=== PATIENT | female | born 1975 | race Caucasian/White ===

== ENCOUNTER 2023-10-29 16:40 | Outpatient (CLI) | payer BC, SELFPAY ==
--- NOTE | 2023-10-29 17:00 | US_ITS ---
Patient: ART HERRING Facility:?[facility] Patient ID:?[id number] Site Patient ID:?[id number]. Site :?[id number] Study:?US-Pelvis PELVIS TA & TV-10/29/2023 5:19:40 PM Ordering Physician:?VASILIY MOSLEY M.D. Final Report: INDICATION: Pelvic pain, abnormal uterine bleeding after ablation. TECHNIQUE: Transabdominal and transvaginal pelvic ultrasound. FINDINGS: Uterus is anteverted measures 9.2 x 5.8 x 6.0 cm. Endometrial stripe thickness is 6 mm. There is a 1.8 cm hypoechoic area in the right fundus. Is unclear if this is within the myometrium representing a leiomyoma or within the endometrium which could be complex fluid or a mass. Both ovaries appear normal. No adnexal mass or free fluid. IMPRESSION: 1.8 cm hypoechoic area in the right uterine fundus, leiomyoma versus endometrial fluid/lesion. Follow-up recommended in 6-8 weeks. Dictated by Shaun Arellano MD @ 10/30/2023 11:08:08 AM Signed by:?Shaun Arellano MD @10/30/2023 11:08:08 AM (Electronic Signature)
== END 2023-10-29 16:41 | disposition home or self-care (01) ==
LOC: US 16:40
PROVIDERS: Visit Provider Obstetrics & Gynecology
DX: N93.9 Abnormal uterine and vaginal bleeding, unspecified (principal); R93.89 Abnormal findings on diagnostic imaging of other specified body structures; R10.2 Pelvic and perineal pain
CPT/HCPCS: 76830; 76856; 93976

== ENCOUNTER 2023-12-04 07:51 | Day surgery (SDC) | payer BC, SELFPAY ==
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
--- OUTSIDE RECORDS SUMMARY | 2023-12-04 07:53 | XMS_ITS | Clinical Summary ---
Author Name Unknown Organization [facility] Address [address] [place] [address] Care Team Providers Care Preschool Assistant Director Name Role Phone Steve Choudhury M.D. Primary Care Provider [phone] Source Comments Patient records contain information from all sites at [facility]. For routine questions regarding patient records, call [phone] during business hours, M-F 8:00 AM - 5:00 PM Central Time. Record requests for emergency care only can be directed to [phone] at any time.[facility] Allergies Active Allergy Reactions Criticality Noted Date [...] 40-44 posted on 01/10 at 16:52 CDT. Encounters Date Type Department Care Team Description 10/30/2023 Orders Only [facility] MNT Steve Choudhury M.D. Monitoring For Therapeutic Drug Therapy from Last 3 Months Immunizations Name Administration Dates Next Due DTaP (Infanrix, Tripedia) 11/19/2006 H1N1 Inj 08/16/2009 Influenza (IM) Preservative Free 06/11/2008 Influenza Laiv (Nasal) (Discontinued) 05/04/2009 Influenza Split 05/30/2006, 5,05/31/2004,1999 Influenza, Injectable, Quadrivalent 05/30/2018,1 ,04/08/2015 Influenza, Seasonal, Injectable 06/10/2007 Influenza, Unspecified 05/03/2016,2014,06/10/2014,2012,05/08/2012,05/11/2010 Tdap 06/27/2017,11/19/2006 influenza vaccine quad (FLUZONE/FLUARIX) (6 months and older)(PF) 07/27/2021,07/07/2020,05/27/2019,2017,06/27/2017,05/03/2016 Family History Medical History Relation Name Comments Coronary artery disease Father David Bypa ss surgery in early 40's Heart disease Father David of compli cations of heart surgery Hyperlipidemia Father David Hypertension Father David Obesity Father David Diabetes Maternal Grandfather Al Colon cancer Maternal Grandmother Genet Other cancer Maternal Grandmother Genet Anxiety disorder Mother Michelle Arthritis Mother Michelle Depression Mother Michelle Diabetes Mother Michelle Endometrial cancer Mother Michelle Kidney disease Mother Michelle Kidney transplant Mother Michelle Melanoma Mother Michelle Obesity Mother Michelle Osteoporosis Mother Michelle Other cancer Mother Michelle Uterine Cancer Skin cancer Mother Michelle Sleep apnea Mother Michelle Diabetes Sister 1 Hypertension Sister 1 Obesity Sister 1 Hypertension Sister 2 Anxiety disorder Sister 3 Marisol Depression Sister 3 Marisol Hypertension Sister 3 Marisol Obesity Sister 3 Marisol Anxiety disorder Sister 4 Eloisa Depression Sister 4 Eloisa Diabetes Sister 4 Eloisa Hyperlipidemia Sister 4 Eloisa Hypertension Sister 4 Eloisa Obesity Sister 4 Eloisa Relation Name Status Comments Father David Maternal Grandfather Al Maternal Grandmother Genet Mother Michelle Sister 1 Alive Sister 2 Alive Sister 3 Marisol Sister 4 Eloisa Social History Tobacco Use Types Packs/Day Years [...] week 03/29/2021 How often do you attend chur ch or rastafari services? More than 4 times per year 03/29/2021 Do you belong to any clubs o r organizations such as sabianism groups, unions, fraternal or athletic groups, or [...] Answer Date Recorded PHQ-2 Score 3 01/25/2022 [facility]ational [facility] Questionnaire Answer Date Recorded [...] place to sleep or slept in a halfway (including now)? No 03/29/2021 Depression Answer Date [...] CDT Gender Identity Female 06/29/2017 9:52 PM TIRE TECHNICIAN Sexual Orientation Straight 06/29/2017 9: 52 PM TIRE TECHNICIAN Last Filed Vital Signs Vital Sign Reading Time Taken Comments Blood Pressure 145/88 03/29/2021 11:48 AM CDT Pulse 71 03/29/2021 11:48 AM CDT Temperature 36.8 ??C (98.2 ??F) 03/29/2021 11:47 AM C DT Respiratory Rate 18 06/07/2020 1:43 PM TIRE TECHNICIAN Oxygen Saturation 93% 09/12/2019 3:22 PM TIRE TECHNICIAN Inhaled Oxygen Concentration - - Weight 109 kg (239 lb 6.7 oz) 03/29/2021 11:47 A M CDT Height 170.2 cm (5' 7) 03/29/2021 11:47 AM CDT Body Mass Index 37.5 03/29/2021 11:47 AM CDT Plan of Treatment Health Maintenance Due Date Last Done Comments CT Colonography 1975 Cologuard 1975 FIT 1975 Office Visit for Blood Pressure Check / Re-check 1974 Hepatitis B Vaccines (1 of 3 - 19+ 3-dose series) 1993 Cervical Cancer Screening 08/30/20212018, 03/18/2015, 05/08/2012 Visit: Chronic Disease, age 18+ 03/29/2022 03/29/2021 Depression Monitoring (PHQ-9) 05/27/2022 01/25/2022 COVID-19 Vaccine ( season) 2023 05/15/2021, 04/29/2021, 04/15/2021 Creatinine Level (Kidney Function Test) 01/18/2024 01/17/2023, 01/17/2023, 11/23/2022, Additional history exists Potassium Level 01/18/2024 01/17/2023, 10/29, 03/31/2021, Additional history exists Sodium Level 01/18/2024 01/17/2023, 10/29, 05/12/2022, Additional history exists Mammogram 09/03/2024 09/03/2023, 07/30, 05/17/2022, Additional history exists Fasting Glucose for Diabetes Screening 01/17/2026 01/17/2023, 11/23/2022, 05/12/2022, Additional history exists DTaP,Tdap,and Td Vaccines (4 - Td or Tdap) 06/27/2027 06/27/2017, 11/19/2006, 11/19/2006 Lipid (Cholesterol) Screening 01/18/2028 01/17/2023, 03/31/2021, 09/12/2019, Additional history exists Colonoscopy 11/20/2032 11/20/2022 Colorectal Cancer Screening 11/20/2032 Hepatitis C Screening Completed 03/31/2021 Influenza Vaccine Completed 05/10/2023, , 07/27/2021, Additional history exists Pneumococcal vaccine (0-64 years) Aged Out No longer eligible based on patient's age to complete this topic Procedures Procedure Name Priority Date/Time Associated Diagnosis Comments EXTI LIPID PANEL, S Routine 01/17/2023 7 :51 AM CDT EXTI BASIC METABOLIC PANEL, S/P Routine 01/17/2023 7:51 AM CDT BI BREAST SCREENING BILATERAL WITH TOMOSYNTHESIS Routine 08/15/2022 7:13 AM TIRE TECHNICIAN HCV AB SCRN W/REFLEX TO HCV PCR, S Routine 03/31/2021 7:13 AM CDT Connective Tissue Disease (HCC) THINPREP SCREEN HPV REFLEX Routine 08/30/2018 4:03 PM TIRE TECHNICIAN General Medical Examination Adult from Last 3 Months or Most Recently Relevant to Health Maintenance Results * HCV Ab Scrn w/Reflex to HCV PCR, Serum (03/31/2021 7:13 AM CDT) HCV Ab Screen, S Negative Negative 04/01/2021 8:42 AM CDT [facility] Comment:[id number] rat io is <1.00. Blood (Blood, Venous) 03/31/2021 7:13 AM CDT 04/01/2021 8:42 AM CDT Steve Choudhury M.D. LAB MICROBIOLOGY - BLOOD ORDERABLES [facility] [address] [place] [address] [facility] Dept. of Laboratory Medicine and Pathology [address] [place] [address] * ThinPrep Screen HPV Reflex (08/30/2018 4:03 PM TIRE TECHNICIAN) 09/03/2018 3:18 PM TIRE TECHNICIAN [facility] Report electronically signed by DAWSON Simms(ASCP) I verify that I have examined all relevant slides/materials for the specimen(s) and rendered or confirmed the diagnosis. 09/03/2018 3:18 PM TIRE TECHNICIAN [facility] Gross Description Received specimen in a ThinPrep vial. 09/03/2018 3:18 PM TIRE TECHNICIAN [facility] Pap Test Source Cervical/Endocervi viktoira 09/03/2018 3:18 PM TIRE TECHNICIAN [facility] Clinical History unk 09/03/19 3:18 PM TIRE TECHNICIAN [facility] Menstrual Status(LMP, PM, ) unk 09/03/2018 3:18 PM TIRE TECHNICIAN [facility] Hormone Therapy/Contracep tives unk 09/03/2018 3:18 PM TIRE TECHNICIAN [facility] Interpretation Cervical/Endocervi viktoria ??(ThinPrep): Satisfactory for Evaluation Negative for Intraepithelial Lesion or Malignancy 09/03/2018 3:18 PM TIRE TECHNICIAN [facility] Varies (Cervix/Endocerv ix) 08/30/2018 4:03 PM TIRE TECHNICIAN 09/02/2018 2:26 PM TIRE TECHNICIAN Steve Choudhury M.D. LAB PAP PATHDX MARCO SUAZO [facility] Organization Address City/State/ZIP Co de Phone Number [facility] [address] [place] [address], [facility] from Last 3 Months or Most Recently Relevant to Health Maintenance Care Teams Preschool Assistant Director Relationship Specialty Start Date End Date Steve Choudhury M.D. [address] [phone] PCP - General 01/11/17
--- OUTSIDE RECORDS SUMMARY | 2023-12-04 07:53 | XMS_ITS ---
Author Name Unknown Organization [facility] Address [address] [place] [address] Care Team Providers Care Port Crane Operator Name Role Phone Unavailable Unavailable Unavailable Surgery Details Not on file Complications Check Surgery Details section. Procedure Estimated Blood Loss Check Surgery Details section. Procedure Findings Check Surgery Details section. Procedure Specimens Taken Check Surgery Details section.
--- OUTSIDE RECORDS SUMMARY | 2023-12-04 07:54 | XMS_ITS | Clinical Summary ---
Author Name Unknown Organization [employer] [facility] [facility] Address [place], [place] [address] Care Team Providers Care Contractor [employer] Threshing Name Role Phone Jessica Stanton DO Primary Care Provider Allergies Active Allergy Reactions Criticality Noted Date Comments Cat Dander Itching Medium 03/11/2019 Medications Medication Sig Dispensed Refills Start Date End Date Status magnesium citrate 100 mg tab 300 mL. 4 Active White Petrolatum-Minera l Oil (Refresh P.M.) 57.3-42.5 % ophthalmic ointment 1 nick, Eye(Left), Bedtime 1 Active cholecalciferol, Vitamin D3, (Vitamin D-3) 5,000 unit tab tablet 0 Active latanoprost (XALATAN) 0.005 % ophthalmic solution Place 1 Drop into the eye(s). 1 Active carboxymethylcell ulose 0.5% 0.5 % drop ophthalmic drops 0 2 Active b complex vitamins (VITAMIN B COMPLEX) capsule Take 2 Capsules by mouth once daily. 0 3 Active LORazepam (ATIVAN) 0.5 mg tabIndications:An xiety Take 1 Tablet (0.5 mg) by mouth every 6 hours if needed for Anxiety or Sleep. 30 Tablet 3 Active CPAPIndications:O bstructive sleep apnea syndrome,Fatigue, unspecified type replacement CPAP machine for home use at pressure: 5-16 cmw , Heated humidifier x 1 q 5 yr, Humidifier chamber x 1 q 6 mo, nasal mask x1 q 3mos, with pillows x 2 q mo, Heated tubing x 1 q 3 mo, Headgear x 1 q 6 mo, Filters: Disposable x 2 q mo non-disposable filters x1 q 6mo, Length of Need: 99 months, Frequency of use: Daily 1 Each 3 3 Active DULoxetine (CYMBALTA) 60 mg Delayed-release capsuleIndication s:Myofascial pain,Moderate episode of recurrent major depressive disorder (HC) TAKE 2 CAPSULES BY MOUTH ONCE DAILY 180 Capsule 1 3 Active lisinopril-hydroc hlorothiazide, 20-25 mg, (PRINZIDE, ZESTORETIC) 20-25 mg per tabletIndications :Primary hypertension TAKE 1 TABLET BY MOUTH EVERY DAY 90 Tablet 2 4 Active lisinopril-hydroc hlorothiazide, 20-25 mg, (PRINZIDE, ZESTORETIC) 20-25 mg per tabletIndications :Primary hypertension Take 1 Tablet by mouth once daily. 90 Tablet 3 3 11/11/19 24 Discontinued Active Problems Problem Noted Date Diagnosed Date FH: premature coronary heart disease 11/23/2022 Pap smear for cervical cancer screening 06/19/20 22 Overview: 04/2022 NIL/ HPV negative Plan: Pap/ HPV due 04/2027 Disorder of connective tissue 05/17/2022 Female infertility 05/03/2022 Obesity with body mass index 30 or greater 08/30 Primary hypertension 06/27/2017 Obstructive sleep apnea syndrome 06/27/2017 Myofascial pain 04/26/2016 Arthralgia of temporomandibular joint 04/26/2016 Moderate episode of recurrent major depressive d isorder 11/19/2009 Overview: Depression* Encounter for screening colonoscopy Encounters Date Type Department Care Team Description 11/30/2023 8:00 AM CDT Preop Visit [facility] [address] [place] [address] Abdullahi Valle MD Preoperative Exam (DOS: 12/04/2023, hysteroscopy, Dr. Roth, [facility]) 11/30/2023 Travel 11/10/2023 Refill [facility] [address] [place] [address] Jessica Stanton, Refill Request (Lisinopril-hydrochl orothiazide (20-25 Mg)) 10/17/2023 Lab Requisition [facility] [phone] Justina Dixon MD 09/06/2023 3:00 PM [employer] SUPERVISOR Office Visit [address] [place] [address] Jessica Stanton, DO Physical 09/06/2023 Travel from Last 3 Months Immunizations Name Administration Dates Next Due DTaP 11/19/2006 Influenza A (H1N1), Inactivated 08/16/2009 Influenza A (H1N1), Inactiva ingrid (Age >=3 Years) 08/16/2009 Influenza Virus, Unspecified 05/30/2018, 05/15/2016,05/03/2016,2014,04/08/2015,06/10/2014,06/04/2013,1 ,05/11/2010,05/30/2006, 005,05/31/2004,07/26/2000 Influenza, IIV3 (Age 6-35 mos) 06/11/2008 Influenza, IIV3 (Age >=3 years) 05/08/20 12,06/10/2007,05/30/2006,2004,05/31/2004,07/26/2000 Influenza, IIV4 05/03/2022,,07/07/2020,2018,06/18/2018,06/27/2017,05/03/2016 Influenza, IIV4 (=>6mos) MDV 05/12/2015 Influenza, Injectable, Mdck, Quadrivalent, W/preservative 05/10/2023 Influenza, Live, Intranasal Laiv3 05/04/2009 Tdap 06/27/2017,11/19/2006 Family History Medical History Relation Name Comments Good Health Daughter 1 Good Health Daughter 2 Anesthesia Problem No Family History Relation Name Status Comments Daughter 1 Daughter 2 Social History Tobacco Use Types Packs/Day Years Used Date Smoking Tobacco: Never Passive Smoke Exposure: Past Smokeless Tobacco: Never Tobacco Cessation:Counseling Given: No Passive Exposure Comments:parents smoked in child hess life and she lived above a bar as a child Alcohol Use Standard Drinks/Week Comments Yes 0 (1 standard drink = 0.6 oz pur e alcohol) minimal PHQ-2 Answer Date Recorded PHQ-2 TOTAL SCORE 2 11/23/2022 Social Connections Answer Date Recorded Frequency of Communication with Friends and Fami ly 0 11/30/2023 Financial Resource Strain Answer Date R ecorded Difficulty of Paying Living Expenses 3 11/30/2023 Difficulty of Paying Living Expenses Not on file 11/30/2023 Food Insecurity Answer Date Recorded Worried About Running Out of Food in the Last Ye ar 1 11/30/2023 Transportation Needs Answer Date Record ed Lack of Transportation (Medical) 1 11/30/2023 Housing Stability Answer Date Recorded Unable to Pay for Housing in the Last Year 1 11/30/2023 Sex and Gender Information Value Date Recorded Sex Assigned at Female 05/01/2022 5:46 PM CDT Gender Identity Female 05/01/2022 5:46 PM CDT Sexual Orientation Straight 05/01/2022 5: 46 PM CDT Obstetrics History Last Filed Vital Signs Vital Sign Reading Time Taken Comments Blood Pressure 120/74 11/30/2023 8:06 AM CDT Pulse 80 11/30/2023 8:06 AM CDT Temperature 36.7 ??C (98.1 ??F) 12/21/2022 9:50 AM CD T Respiratory Rate 16 09/06/2023 3:10 PM [employer]OM SUPERVISOR Oxygen Saturation 95% 11/30/2023 8:06 AM CDT Inhaled Oxygen Concentration - - Weight 121.1 kg (267 lb) 11/30/2023 8:06 AM CDT Height 166 cm (5' 5.35) 11/30/2023 8:06 AM CDT Body Mass Index 43.95 11/30/2023 8:06 AM CDT Plan of Treatment Upcoming Encounters Date Type Department Care Team (Late st Contact Info) Description 12/26/2023 11:30 AM CDT Preop Visit [facility] [address] [place] [address] Jessica Stanton, [address] [place] [address] Health Maintenance Due Date Last Done Comments HIV for age 15-65 1989 COVID-19 vaccine series (2022- season) 2023 05/15/2021, 04/15/2021 Depression screening for age 12+ 11/24/2023 11/23/2022, 08/11/2022, 05/03/2022 Influenza for age 9-49 03/30/2024 , 05/03/2022, 07/27/2021, Additional history exists Mammogram for age 45-75 09/03/2024 09/03/19, 08/15/2022, 03/29/2021 (Verified in Care Everywhere or Patient Record) BMI (ht and wt on same day) for age 18+ 11/29/2024 11/30/2023, 09/06/2023, 05/12/2022 Pap test for age 21-65 05/12/2027 , 05/12/2022, 08/30/2018 (Verified in Care Everywhere or Patient Record) Tetanus booster 06/27/2027 06/27/2017, 11/19/2006 Lipids for age 45-75 09/06/2028 09/06/2023, 01/17/2023, 03/31/2021 (Verified in Care Everywhere or Patient Record) Colonoscopy through age 75 11/20/2032 11/20/2022 Tdap Completed 06/27/2017, 11/19/2006 Hepatitis C screening for age 18-79 Addressed 03/31/2021 (Verified in Care Everywhere or Patient Record) Overridden with the intention of not completing the topic Pneumococcal series for age 6-64 Aged Out No longer eligible b ased on patient's age to complete this topic Procedures Procedure Name Priority Date/Time Associated Diagnosis Comments POTASSIUM,ISTAT Routine 11/30/2023 8:31 AM CDT Essential hypertension HEMOGLOBIN Routine 11/30/2023 8:25 AM CDT Preop examination LAB TRACKING EVENT Routine 10/17/2023 8: 55 AM CDT PATH TISSUE EXAM Routine 10/17/2023 8:55 AM CDT UA W/ SEDIMENT EXAM REFLEXED PER CRITERIA Routine 09/06/2023 4:16 PM [employer] SUPERVISOR Mixed stress and urge incontinence CBC WITH AUTO DIFFERENTIAL Routine 09/06/2023 4:09 PM [employer] SUPERVISOR Primary hypertension TSH WITH REFLEX Routine 09/06/2023 4:09 PM [employer]ING [employer]OM SUPERVISOR Itchy scalp Myalgia ANTINUCLEAR ANTIBODY BY IFA Routine 09/06/2023 4:09 PM [employer] RIPENING ROOM SUPERVISOR Myalgia CK TOTAL Routine 09/06/2023 4:09 PM [employer]ING [employer]OM SUPERVISOR Myalgia LIPID PANEL W REFLEX MEASURED LDL Routine 09/06/2023 4:09 PM [employer] SUPERVISOR Primary hypertension MAGNESIUM Routine 09/06/2023 4:09 PM [employer]OM SUPERVISOR Primary hypertension Myalgia SEDIMENTATION RATE Routine 09/06/2023 4: 09 PM [employer] ROOM SUPERVISOR Myalgia COMP METABOLIC PANEL Routine 09/06/2023 4:09 PM [employer] ROOM SUPERVISOR Primary hypertension CBC WITH AUTO DIFFERENTIAL Routine 09/06/2023 4:09 PM [employer] ROOM SUPERVISOR Primary hypertension XR MAMMO KAROL BILAT SCREEN Routine 09/03/2023 7:19 AM [employer] SUPERVISOR Encounter for screening mammogram for malignant neoplasm of breast COLONOSCOPY 11/20/2022 7:08 AM CDT HPV THIN PREP Routine 05/12/2022 8:15 AM CDT Pap smear for cervical cancer screening from Last 3 Months or Most Recently Relevant to Health Maintenance Results * POTASSIUM,ISTAT (11/30/2023 8:31 AM CDT) POTASSIUM, POCT 4.4 3.5 - 5.0 mmol/L 11/30/2023 8:34 AM CDT [facility] Blood BLOOD SPECIMEN / Unknown 11/30/2023 8:31 AM CDT 11/30/2023 8:33 AM CDT Abdullahi Valle MD CHEMISTRY Performing Organization Address [facility] Co de Phone Number [facility] [address] [place] [address], * HEMOGLOBIN (11/30/2023 8:25 AM CDT) HEMOGLOBIN 13.1 12.0 - 16.0 g/dL 11/30/2023 8:35 AM CDT [facility] MCV 90 80 - 100 fL 11/30/2023 8:35 AM CDT [facility] Blood BLOOD SPECIMEN / Unknown Venipuncture / Unknown 11/30/2023 8:25 AM CDT 11/30/2023 8:27 AM CDT Abdullahi Valle MD HEMATOLOGY Performing Organization Address City/[facility]/ZIP Co de Phone Number [address] [address], * LAB TRACKING EVENT (10/17/2023 8:55 AM CDT) Other (Other) Client Collect / Unknown 10/17/2023 8:55 AM CDT 10/17/2023 4:14 PM CDT Justina Dixon MD LAB BILL O KARMENY Performing Organization Address City/[facility]/ZIP Co de Phone Number [facility] [address] [place] [address], * PATH TISSUE EXAM (10/17/2023 8:55 AM CDT) Case Report Pathology Report ?Case: [id number] ? Authorizing Provider: ??Justina Cardoso ??Collected: ? 10/17/2023 0855 ? M, MD ? Ordering Location: ? [facility] ?Received: ?10/17/2023 1642 ? Pathologist: ? Alban Adrian MD ? Specimen: ?Endometrial ? 10/18/2023 2:45 PM CDT [facility] Final Diagnosis A) ENDOMETRIUM, BIOPSY: 1. Very scant surface endometrial tissue in this specimen 2. Fragments of benign endocervical epithelium 3. Recommend repeat endometrial tissue sampling, as clinically indicated 10/18/2023 2:45 PM CDT [facility] Clinical Information Abnormal uterine bleeding 10/18/2023 2:45 PM CDT [facility] Gross Description A) Received in formalin, labeled with the patient's name and date of , is a 2.3 x 0.8 x 0.3 cm aggregate of clotted blood and mucus. ??The specimen is entirely submitted in 1 cassette. EKW 10/17/2023 10/18/2023 2:45 PM CDT [facility] Microscopic Description The final diagnosis is based on microscopic examination of appropriate sections of all specimens. Additional levels were examined. 10/18/2023 2:45 PM CDT [facility] Additional Information Interpreted at [facility] - [address] [place] [address]. [facility] [address], [place] [address] 10/18/2023 2:45 PM CDT [facility] Other SPECIMEN FROM ENDOMETRIUM / Unknown 10/17/2023 8:55 AM CDT 10/17/2023 4:42 PM CDT Justina Dixon MD PATHOLOGY/ CYTOLOGY [facility] [address] [place] [address], * UA W/ SEDIMENT EXAM REFLEXED PER CRITERIA (09/06/2023 4:16 PM [employer] ROOM SUPERVISOR) COLOR Yellow Yellow Color 09/06/2023 5:13 PM [facility] CLARITY Clear Clear Clarity 09/06/2023 5:13 PM [facility] SPECIFIC GRAVITY,URINE 1.025 1.010, 1.015, 1.020, 1.025 09/06/2023 5:13 PM [facility] PH,URINE 6.0 6.0, 7.0, 8.0, 5.5, 6.5, 7.5, 8.5 09/06/2023 5:13 PM [facility] UROBILINOGEN, QUALITATIVE Normal Normal EU/dl 09/06/2023 5:13 PM [facility] PROTEIN, URINE Negative Negative mg/dL 09/06/2023 5:13 PM [facility] GLUCOSE, URINE Negative Negative mg/dL 09/06/2023 5:13 PM [facility] KETONES,URINE Negative Negative mg/dL 09/06/2023 5:13 PM [facility] BILIRUBIN,URI NE Negative Negative 09/06/2023 5:13 PM [facility] OCCULT BLOOD,URINE Negative Negative 09/06/2023 5:13 PM [facility] NITRITE Negative Negative 09/06/2023 5:13 PM [facility] LEUKOCYTE ESTERASE Negative Negative 09/06/2023 5:13 PM [facility] Urine URINE SPECIMEN / Unknown Non-Blood / Unknown 09/06/2023 4:16 PM [employer] SUPERVISOR 09/06/2023 4:16 PM [employer] SUPERVISOR Jessica Stanton DO URINE Performing Organization Address City/[facility]/ZIP Co de Phone Number [facility] [address] [place] [address] * SEDIMENTATION RATE (09/06/2023 4:09 PM [employer] RIP[employer] ROOM SUPERVISOR) SEDIMENTATION RATE 10 <20 mm/hr 2023 5:19 PM [facility] Blood BLOOD SPECIMEN / Unknown Venipuncture / Unknown 09/06/2023 4:09 PM [employer] SUPERVISOR 09/06/2023 4:10 PM [employer] SUPERVISOR Jessica Stanton DO HEMATOLOGY [facility] [address] [place] [address] * (ABNORMAL) ANTINUCLEAR ANTIBODY BY IFA (09/06/2023 4:09 PM [employer] RIP[employer] ROOM SUPERVISOR) ANTINUCLEAR ANTIBODY (JAZMINE) Positive( A) Negative 09/10/2023 12:05 PM [facility] JAZMINE PATTERN 1 Speckled( A) (none) 09/10/2023 12:05 PM [facility] JAZMINE TITER 1 1:640(A) (none) 09/10/2023 12:05 PM [facility] Blood BLOOD SPECIMEN / Unknown Venipuncture / Unknown 09/06/2023 4:09 PM [employer] ROOM SUPERVISOR 09/06/2023 4:10 PM [facility] - 09/10/2023 12:05 PM [employer] RO[employer] SUPERVISOR Method: JAZMINE screen performed by (IFA) on HEP-2 substrate, IgG Jessica Stanton DO CHEMISTRY [facility] [address] [place] [address], * (ABNORMAL) CBC WITH AUTO DIFFERENTIAL (09/06/2023 4:09 PM [employer]NA RIP[employer] ROOM SUPERVISOR) WHITE BLOOD COUNT 9.9 4.5 - 11.0 thou/cu mm 09/06/2023 5:12 PM [facility] RED BLOOD COUNT 4.53 4.00 - 5.20 mil/cu mm 09/06/2023 5:12 PM [facility] HEMOGLOBIN 13.1 12.0 - 16.0 g/dL 09/06/2023 5:12 PM [facility] HEMATOCRIT 40.9 33.0 - 51.0 % 09/06/2023 5:12 PM [facility] MCV 90 80 - 100 fL 09/06/2023 5:12 PM [facility] MCH 28.9 26.0 - 34.0 pg 09/06/2023 5:12 PM [facility] MCHC 32.0 32.0 - 36.0 g/dL 09/06/2023 5:12 PM [facility] RDW 14.0 11.5 - 15.5 % 09/06/2023 5:12 PM [facility] PLATELET COUNT 353 140 - 440 thou/cu mm 09/06/2023 5:12 PM [facility] MPV 9.8 6.5 - 11.0 fL 09/06/2023 5:12 PM [facility] % NEUT 57.0 % 09/06/2023 5:12 PM [facility] % LYMPH 28.9 % 09/06/2023 5:12 PM [facility] % MONO 7.4 % 09/06/2023 5:12 PM [facility] % EOS 6.0 % 09/06/2023 5:12 PM [facility] % BASO 0.7 % 09/06/2023 5:12 PM [facility] ABSOLUTE NEUTROPHILS 5.7 1.7 - 7.0 thou/cu mm 09/06/2023 5:12 PM [facility] ABSOLUTE LYMPHOCYTES 2.9 0.9 - 2.9 thou/cu mm 09/06/2023 5:12 PM [facility] ABSOLUTE MONOCYTES 0.7 <0.9 thou/cu mm 09/06/2023 5:12 PM [facility] ABSOLUTE EOSINOPHILS 0.6(H) <0.5 thou/cu mm 09/06/2023 5:12 PM [facility] ABSOLUTE BASOPHILS 0.1 <0.3 thou/cu mm 09/06/2023 5:12 PM [facility] Blood BLOOD SPECIMEN / Unknown Venipuncture / Unknown 09/06/2023 4:09 PM [employer] SUPERVISOR 09/06/2023 4:10 PM [employer] SUPERVISOR Jessica Stanton DO HEMATOLOGY [facility] [address] [place] [address] * TSH WITH REFLEX (09/06/2023 4:09 PM [employer]NA RIP[employer] ROOM SUPERVISOR) TSH 1.46 0.27 - 4.20 uIU/mL 09/06/2023 5:39 PM [employer] RO[employer] SUPERVISOR [facility] Blood BLOOD SPECIMEN / Unknown Venipuncture / Unknown 09/06/2023 4:09 PM [employer] ROOM SUPERVISOR 09/06/2023 4:10 PM [employer] RIPENING ROOM SUPERVISOR Narrative [facility] - 09/06/2023 5:39 PM [employer]NANA [employer] ROOM SUPERVISOR In Adults, TSH values between 5.00 and 10.00 uIU/ml do not necessarily indicate the presence of Hypothyroidism. Correlation with clinical findings such as presence of goiter and/or Thyroperoxidase (TPO) Antibody may be helpful. For more information please refer to YELENA 2004; 291: 228-238. Jessica Stanton DO CHEMISTRY [facility] [address] [place] [address] * (ABNORMAL) LIPID PANEL W REFLEX MEASURED LDL (09/06/2023 4:09 PM [employer] RO[employer] SUPERVISOR) CHOLESTEROL,TOTAL 202(H) 100 - 199 mg/dL 09/06/2023 5:39 PM [facility] Comment: Cholesterol, Total Reference Ranges Desirable <200 mg/dL Borderline 200-239 mg/dL High >=240 mg/dL TRIGLYCERIDES 178(H) <150 mg/dL 09/06/2023 5:39 PM [facility] HDL CHOLESTEROL 49 >40 mg/dL 5:39 PM [facility] NON-HDL CHOLESTEROL 153(H) <145 mg/dl 09/06/2023 5:39 PM [facility] CHOL/HDL RATIO 4.12 <4.50 09/06/2023 5:39 PM [facility] LDL CHOLESTEROL 117 <=130 mg/dL 09/06/2023 5:39 PM [facility] VLDL CHOLESTEROL 36(H) <=30 mg/dL 09/06/2023 5:39 PM [facility] PROVIDER ORDERED STATUS RANDOM 09/06/2023 5:39 PM [facility] Blood BLOOD SPECIMEN / Unknown Venipuncture / Unknown 09/06/2023 4:09 PM [employer] SUPERVISOR 09/06/2023 4:10 PM [employer] SUPERVISOR Jessica Stanton DO CHEMISTRY [facility] [address] [place] [address] * MAGNESIUM (09/06/2023 4:09 PM [employer]NANA RIPEN[employer] ROOM SUPERVISOR) MAGNESIUM 2.2 1.6 - 2.6 mg/dL 09/06/2023 5:58 PM [facility] Blood BLOOD SPECIMEN / Unknown Venipuncture / Unknown 09/06/2023 4:09 PM [employer] RO[employer] SUPERVISOR 09/06/2023 4:10 PM [employer] ROOM SUPERVISOR Jessica Stanton DO CHEMISTRY Performing Organization Address City/[facility]/ZIP Co de Phone Number [facility] [address] [place] [address] * CK TOTAL (09/06/2023 4:09 PM BANANA RIPENING ROOM SUPERVISOR) Pathologist [facility] CK,TOTAL 68 26 - 192 IU/L 09/06/2023 5:39 PM [facility] Blood BLOOD SPECIMEN / Unknown Venipuncture / Unknown 09/06/2023 4:09 PM [employer] ROOM SUPERVISOR 09/06/2023 4:10 PM [employer] RIP[employer] ROOM SUPERVISOR Jessica Coultern Maximino CHEMISTRY [facility] [address] [place] [address] * (ABNORMAL) COMP METABOLIC PANEL (09/06/2023 4:09 PM BANANA RIPENING ROOM SUPERVISOR) [facility] SODIUM 136 136 - 145 mmol/L 09/06/2023 5:38 PM [facility] POTASSIUM 3.7 3.5 - 5.1 mmol/L 09/06/2023 5:38 PM [facility] CHLORIDE 101 98 - 107 mmol/L 09/06/2023 5:38 PM [facility] CO2,TOTAL 23 22 - 29 mmol/L 09/06/2023 5:38 PM [facility] ANION GAP 12 5 - 18 09/06/2023 5:38 PM [facility] GLUCOSE 135(H) 70 - 99 mg/dL 09/06/2023 5:38 PM [facility] CALCIUM 9.7 8.6 - 10.0 mg/dL 09/06/2023 5:38 PM [facility] BUN 15 6 - 20 mg/dL 09/06/2023 5:38 PM [facility] CREATININE 0.68 0.50 - 0.90 mg/dL 09/06/2023 5:38 PM [facility] BUN/CREAT RATIO 22(H) 10 - 20 5:38 PM [facility] eGFR >90 >90 mL/min/1.7 3m2 09/06/2023 5:38 PM [facility] Comment:As of 2021, eG FR is calculated by the CKD-EPI creatinine equation without race adjustment. ??eGFR can be influenced by muscle mass, exercise, and diet. ??The reported eGFR is an estimation only and is only applicable if the renal function is stable. ALBUMIN 4.2 4.0 - 4.9 g/dL 09/06/2023 5:38 PM [facility] PROTEIN,TOTAL 7.1 6.0 - 8.0 g/dL 09/06/2023 5:38 PM [facility] BILIRUBIN,TOTAL 0.3 0.0 - 1.2 mg/dL 09/06/2023 5:38 PM [facility] ALK PHOSPHATASE 41 35 - 104 IU/L 09/06/2023 5:38 PM [facility] ALT (SGPT) 15 10 - 35 IU/L 09/06/2023 5:38 PM [facility] AST (SGOT) 21 10 - 35 IU/L 09/06/2023 5:38 PM [facility] Blood BLOOD SPECIMEN / Unknown Venipuncture / Unknown 09/06/2023 4:09 PM [employer] ROOM SUPERVISOR 09/06/2023 4:10 PM [employer] ROOM SUPERVISOR Jessica Stanton DO CHEMISTRY [facility] [address] [place] [address] * XR MAMMO KAROL BILAT SCREEN (09/03/2023 7:19 AM BANANA RIPENING ROOM SUPERVISOR) Anatomical Region Laterality Modality BREASTS, Breast Left, Breast Right Bilateral Mammography Impressions 09/03/2023 8:41 AM [employer]NANA RIP[employer] ROOM SUPERVISOR ??There is no radiographic evidence for malignancy. ??Recommend annual mammograms. MAMMOGRAM ASSESSMENT: ??ACR 1 Negative PATIENTS: You will also receive a letter with your examination results in an easy to read format. ??If you have questions about your results, please contact your referring provider. Narrative 09/03/2023 8:41 AM [employer]NANA RIPENING ROOM SUPERVISOR For Patients: As a result of the Century Cures Act, medical imaging exams and procedure reports are released immediately into your electronic medical record. You may view this report before your referring provider. If you have questions, please contact your health care provider. XR MAMMO KAROL BILAT SCREEN [[id number]] CLINICAL HISTORY: ??This is an asymptomatic 48 y.o. patient. INDICATION FOR EXAM: Mammogram Screening. TECHNIQUE: CC & MLO views were obtained. ??This study was evaluated with the assistance of Computer-Aided Detection. Breast Tomosynthesis was used in interpretation. COMPARISON FILM: Yes 08/15/22 ? FINDINGS: ??The breasts have scattered areas of fibroglandular density. There are no dominant masses, suspicious micro calcifications or areas of architectural distortion. Jessica Stanton DO MAMMO * COLONOSCOPY (11/20/2022 7:08 AM CDT) 11/20/2022 7:08 AM CDT Narrative Transcriptions Dahiana Naidu DO - 11/20/2022 8:07 AM CDT Patient Name: Betsy Ramirez Procedure Date: 11/20/2022 Gender: Female Date of : 1975 Admit Type: Ambulatory Procedure: Colonoscopy Proceduralist: Dahiana Naidu MD [facility] Referring MD: Jessica Stanton Indications/Pre-Op Diagnosis: Screening for colorectal malignant neoplasm, This is the patient's first colonoscopy Medications: Propofol per Anesthesia Procedure Description: The patient had risks, benefits and alternatives explained to andgave informed consent. The patient had a stable cardiopulmonary status and judged an adequate candidate for conscious sedation. The endoscope [id number] was passed through the anus andadvanced to the cecum, identified by appendiceal orifice and ileocecal valve.The colonoscopy was performed without difficulty. The patient toleratedthe procedure well. The quality of the bowel preparation was good. The ileocecal valve, appendiceal orifice, and rectum were photographed. Complications: No immediate complications. Estimated Blood Loss & Specimen: Estimated blood loss: none. Specimen collected - None Findings: The entire examined colon appeared normal on direct and retroflexion views. Impressions/Post-Op Diagnosis: - The entire examined colon is normal on direct and retroflexionviews. - No specimens collected. Recommendation: - Discharge patient to home. - Patient has a contact number available for emergencies. The signsand symptoms of potential delayed complications were discussed with the patient. Return to normal activities tomorrow. Written discharge instructions were provided to the patient. - High fiber diet. - Continue present medications. - Repeat colonoscopy in 10 years for screening purposes. Moderate Sedation: Moderate (conscious) sedation was personally administered by an anesthesia professional. The following parameters were monitored:oxygen saturation, heart rate, blood pressure, and response to care. Dahiana Naidu MD 11/20/2022 8:07:31 AM This report has been signed electronically. Note Initiated On: 11/20/2022 7:08 AM Dahiana Naidu DO PROCEDURE ORD * HPV HIGH RISK (05/12/2022 8:15 AM CDT) TYPE 16 Negative Negative 05/17/2022 3:26 PM CDT [facility] TYPE 18 Negative Negative 05/17/2022 3:26 PM CDT [facility]AL [facility] OTHER HIGH RISK TYPES Negative Negative 05/17/2022 3:26 PM CDT [facility] Other (Cervical/Vagina l) Non-Blood / Unknown 05/12/2022 8:15 AM CDT 05/12/2022 4:44 PM CDT Narrative [facility] - 05/17/2022 3:26 PM CDT HPV types 16, 18, 31, 33, 35, 39, 45, 51, 52, 56, 58, 59, 66 and 68 DNA were undetectable or below the pre-set threshold. Methodology: Misha Nan 4800 HPV Test Jessica Stanton DO MICROBIOLOGY [facility] [address] [place] [address], from Last 3 Months or Most Recently Relevant to Health Maintenance Advance Directives * Full Code (Latest Code Status on File) Date Activated Date Inactivated Comments 11/20/2022 6:43 AM 11/20/2022 11:06 AM Question Answer Comments Code Status Discussion: Discussed * Full Code Date Activated Date Inactivated Comments 03/19/2019 9:58 AM 03/19/2019 4:15 PM Question Answer Comments Code Status Discussion: Discussed Care Teams Contractor [employer] Threshing Relationship Specialty Start Date End Date Jessica Stanton DO [address] [place] [address] [place] [address] PCP - General Internal Medicine 05/03/22
--- OUTSIDE RECORDS SUMMARY | 2023-12-04 07:54 | XMS_ITS | Encounter Summary ---
Author Name Unknown Organization [facility] Address [address] [place] [address] Care Team Providers Care Set Up And Lay Out Inspector Name Role Phone Steve Choudhury M.D. Primary Care Provider [phone] Reason for Referral * Outpatient (Routine) - Authorized Specialty Diagnoses / Procedures Referred By Octavia t Referred To Contact Family Medicine Steve Choudhury M.D. [address] [address] [facility] Referral ID Status Reason Start Date Expiration Date V isits Requested Visits Authorized [id number] Authorized 10/30/2023 04/30/2025 1 1 Encounter Details Date Type Department Care Team (Late st Contact Info) Description 10/30/2023 Orders Only [facility] PCP [facility] MNT Steve Choudhury M.D. [address] [place] [address] Monitoring For Therapeutic Drug Therapy Social History Tobacco Use Types Packs/Day Years Used Date Smoking Tobacco: Never Smokeless Tobacco: Never Alcohol Use Standard Drinks/Week Comments Yes 1 [...] 03/29/2021 How often do you attend chur or restoration services? More than 4 times per year 03/29/2021 Do you belong to any clubs o r organizations such as episcopal groups, unions, fraternal or athletic groups, or [...] Answer Date Recorded PHQ-2 Score 3 01/25/2022 [facility] - Occupational [...] place to sleep or slept in a skilled nursing (including now)? No 03/29/2021 Depression Answer Date [...] Date Recorded Dental: Regular Dentist Yes 07/30/19 23 Employment Answer Date Recorded Employment status Employed and actively working without restrictions 03/29/2021 Education Answer Date Recorded What is the highest level of school you have completed or the highest degree you have received? 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 Sexual Orientation Straight 06/29/2017 9: 52 PM LAWN SERVICE WORKER documented as of this encounter Plan of Treatment Scheduled Orders Name Type Priority Associated Diagnoses Orde r Schedule Basic Metabolic Panel Lab Routine Monitoring For Therapeutic Drug Therapy Expected: 11/13/2023, Expires: 04/27/2024 Scheduled Referrals Name Type Priority Associated Diagnoses Orde r Schedule Family Medicine office visit (clinic) Outpatient Referral Routine Expected: 11/13/2023, Expires: 04/27/2024 documented as of this encounter Visit Diagnoses Diagnosis Monitoring For Therapeutic Drug Therapy documented in this encounter Additional Health Concerns Assessment Noted Time PHQ-9 Depression Total Score: 10 022 7:44 AM CDT documented as of this encounter Care Teams Set Up And Lay Out Inspector Relationship Specialty Start Date End Date Steve Choudhury M.D. [address] [place] [address] PCP - General 01/11/17 documented as of this encounter
[2023-12-04 08:22] VITALS: BP 131/76; PULSE 72; RESP 16; TEMP 37.1; O2SAT 96
[2023-12-04 08:24] VITALS: BMI 44.4
[2023-12-04] MEDS: LACTATED RINGERS 1000 ML 1,000 ML 100 ML IV (08:29)
--- NOTE | 2023-12-04 09:15 | W.PM.H&PU ---
History & Physical Update History & Physical Update H&P Reviewed and patient assessed: No changes noted
--- NOTE | 2023-12-04 09:40 | W.ANESCHARGE ---
Anesthesia Charges Start Date/Time Anesthesia Start Date: 12/04/23 Anesthesia Start Time: 09:27 Stop Date/Time Anesthesia Stop Date: 12/04/23 Anesthesia Stop Time: 10:42
[2023-12-04] MEDS: BUPIVACAINE 0.5% 30 ML INJECTION (09:45)
--- NOTE | 2023-12-04 10:21 | SUR.OPER ---
Hysteroscopy fluid deficit 450 ml
[2023-12-04] MEDS: SILVER NITRATE APPLICATOR 1 EACH STICK..EA. TOPICAL (10:25)
--- NOTE | 2023-12-04 10:33 | W.PM.GYNPROC ---
Procedure Note Date of procedure: 12/04/23 Will [facility] bill your pro fee for this procedure?: Yes Pre-op diagnosis: Abnormal uterine bleeding, pelvic pain Post-op diagnosis: Abnormal uterine bleeding, pelvic pain, intrauterine adhesions-history of endometrial ablation Procedure: Hysteroscopy, dilation and curettage Anesthesia: MAC Complications: None Surgeon: Aniceto Dixon MD Estimated blood loss (mL): 20 IV fluids (mL): 700 Urine Output (mL): 100 Pathology: specimen obtained, sent to pathology (endometrial curettings) Condition: stable Disposition: same day Findings: Findings: Normal external genitalia. Speculum exam: Cervix grossly normal, no abnormal discharge. Intrauterine cavity: Long cervical canal, bilateral cornual openings seen, large amount of intrauterine adhesions. Uterine sound 8cm. Procedure Description: Patient was taken to the OR were MAC anesthesia was administered without difficulty. She was placed in the dorsal lithotomy position with Amado type stirrups. Patient was then prepared and draped in the normal sterile fashion. Bladder drained with in-out catheter. A bivalved speculum was inserted in the posterior aspect of the vagina. 0.5% Bupivacaine was injected at 2 and 11 o'clock a total of about 5mL utilized. A single-tooth tenaculum was used to grasp the anterior lip of the cervix. The cervical os was sequentially dilated to accommodate the 5 mm TrueClear hysteroscope using Hegar dilators. This took an extra amount of time due to increased resistance to the dilator at around 4-5cm. Imaging was reviewed intraoperatively, cervical canal long and midline, uterine body more retroverted. This allowed more confident attempts at dilation. I was able to sound uterus after this and uterine sound of about 8cm. A 5 mm 30 degree TrueClear hysteroscope was introduced under direct visualization, and the uterus was distended with normal saline. Findings as above. I had to increase pressure to 100mmHg to better distend cavity. Soft tissue incisor blade from TrueClear hysteroscope system was introduced under direct visualization and endometrial curettings performed. Hysteroscope removed under direct visualization. Gentle sharp curetting also completed at this time. Tenaculum was removed from the cervix and good hemostasis was noted at puncture sites after application of silver nitrate. Patient tolerated the procedure well. Instrument and sponge counts were correct x2. The patient was awakened from MAC anesthesia and taken to the recovery room in a stable condition. The patient will go home after recovering from anesthesia and meeting all the criteria for discharge. She was given instruction regarding follow-up visit in 2 weeks at [facility] and instructions for pain medication. Fluid deficit: 450mL
[2023-12-04 10:46] VITALS: BP 182/105; PULSE 80; RESP 161; TEMP 36.6; O2SAT 92
[2023-12-04 11:00] VITALS: BP 182/103; PULSE 71; RESP 161; O2SAT 92
--- NOTE | 2023-12-04 11:22 | W.ANESCHARGE ---
Anesthesia Charges Start Date/Time Anesthesia Start Date: 12/04/23 Anesthesia Start Time: 09:27 Stop Date/Time Anesthesia Stop Date: 12/04/23 Anesthesia Stop Time: 10:42
[2023-12-04] MEDS: ACETAMINOPHEN 500 MG TABLET 1000 MG PO (11:23)
[2023-12-04 11:28] VITALS: BP 175/90; PULSE 70; RESP 161; O2SAT 93
--- NOTE | 2023-12-04 11:29 | SUR.PHASEII ---
PATIENT KNOWS TO TAKE HER BP MEDICATION SOON SHE GETS HOME
== END 2023-12-04 11:44 | disposition home or self-care (01) ==
LOC: OR 07:52
PROVIDERS: PCP Internal Medicine; Visit Provider Obstetrics & Gynecology
PROC: 0UDB8ZZ Extraction of Endometrium, Via Natural or Artificial Opening Endoscopic (ICD-10-PCS; CPT 58558; principal; 2023-12-04 09:15)
DX: N93.8 Other specified abnormal uterine and vaginal bleeding (principal); R10.2 Pelvic and perineal pain; N73.6 Female pelvic peritoneal adhesions (postinfective)
CPT/HCPCS: 58558; 00952; 36415; 81025; 85018; 88305; A9270; J0665; J1100; J1885; J2250; J2405; J2704; J3010; J7120

== ENCOUNTER 2024-01-09 09:58 | Day surgery (SDC) | payer BC, SELFPAY ==
[2024-01-08] MEDS: LACTATED RINGERS 1000 ML 1,000 ML 100 ML IV (10:23)
[2024-01-09] VITALS (20 sets, daily range): BP systolic 135–166; BP diastolic 79–99; PULSE 75–94; RESP 12–20; TEMP 35.9–37.3; O2SAT 91–97; BMI 43.4
--- OUTSIDE RECORDS SUMMARY | 2024-01-09 10:02 | XMS_ITS | Clinical Summary ---
Author Organization [facility] Address [address] [place] [address] Care Team Providers Care Biology Laboratory Assistant Name Role Phone Steve Choudhury M.D. Primary Care Provider [phone] Source Comments Patient records contain information from all sites at [facility]. For routine questions regarding patient records, call [phone] during business hours, M-F 8:00 AM - 5:00 PM Central Time. Record requests for emergency care only can be directed to [phone] at any time.[facility] Allergies Active Allergy Reactions Criticality Noted Date [...] Description 10/30/2023 Orders Only [facility] PCP [facility] MNT Steve Choudhury M.D. Monitoring For Therapeutic [...] any clubs o r organizations such as voodoo groups, unions, fraternal or athletic groups, or [...] Answer Date Recorded PHQ-2 Score 3 [facility]20[facility] Answer Date Recorded [...] place to sleep or slept in a mcc (including now)? 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 Sexual Orientation Straight 06/29/2017 9: 52 PM GENERAL MANAGER IN TRAINING Last Filed Vital Signs Vital Sign Reading Time Taken Comments Blood Pressure 145/88 03/29/2021 11:48 AM CDT Pulse 71 03/29/2021 11:48 AM CDT Temperature 36.8 ??C (98.2 ??F) 03/29/2021 11:47 AM C DT Respiratory Rate 18 06/07/2020 1:43 PM GENERAL MANAGER IN TRAINING Oxygen Saturation 93% 09/12/2019 3:22 PM GENERAL MANAGER IN TRAINING Inhaled Oxygen Concentration - - Weight 109 [...] Depression Monitoring (PHQ-9) 05/27/2022 01/25/2022 COVID-19 Vaccine (2022- season) 2023 05/15/2021, 04/29/2021, 04/15/2021 Creatinine Level [...] BILATERAL WITH TOMOSYNTHESIS Routine 08/15/2022 7:13 AM GENERAL MANAGER IN TRAINING HCV AB SCRN W/REFLEX TO HCV PCR, S Routine 03/31/2021 7:13 AM CDT Connective Tissue Disease (HCC) THINPREP SCREEN HPV REFLEX Routine 08/30/2018 4:03 PM GENERAL MANAGER IN TRAINING General Medical Examination Adult from Last 3 Months or Most Recently Relevant to Health Maintenance Results * HCV Ab Scrn w/Reflex to HCV PCR, Serum (03/31/2021 7:13 AM CDT) [facility] HCV Ab Screen, S Negative Negative 04/01/2021 8:42 AM CDT [facility] Comment:Jxgjhz-[id number]-rowvri rat io is <1.00. Blood (Blood, Venous) 03/31/2021 7:13 AM CDT 04/01/2021 8:42 AM CDT Steve Choudhury M.D. LAB MICROBIOLOGY - BLOOD ORDERABLES [facility] [address] [place] [address] [facility] Dept. of Laboratory Medicine and Pathology [address] [place] [address] * ThinPrep Screen HPV Reflex (08/30/2018 4:03 PM GENERAL MANAGER IN TRAINING) 09/03/2018 3:18 PM GENERAL MANAGER IN TRAINING [facility] Report electronically signed by DAWSON Simms(ASCP) I verify that I have examined all relevant slides/materials for the specimen(s) and rendered or confirmed the diagnosis. 09/03/2018 3:18 PM GENERAL MANAGER IN TRAINING [facility] Gross Description Received specimen in a ThinPrep vial. 09/03/2018 3:18 PM GENERAL MANAGER IN TRAINING [facility] Pap Test Source Cervical/Endocervi viktoria 09/03/2018 3:18 PM GENERAL MANAGER IN TRAINING [facility] Clinical History unk 09/03/19 3:18 PM GENERAL MANAGER IN TRAINING [facility] Menstrual Status(LMP, PM, ) unk 09/03/2018 3:18 PM GENERAL MANAGER IN TRAINING [facility] Hormone Therapy/Contracep tives unk 09/03/2018 3:18 PM GENERAL MANAGER IN TRAINING [facility] Interpretation Cervical/Endocervi viktoria ??(ThinPrep): Satisfactory for Evaluation Negative for Intraepithelial Lesion or Malignancy 09/03/2018 3:18 PM GENERAL MANAGER IN TRAINING [facility] Varies (Cervix/Endocerv ix) 08/30/2018 4:03 PM GENERAL MANAGER IN TRAINING 09/02/2018 2:26 PM GENERAL MANAGER IN TRAINING Steve Choudhury M.D. LAB PAP PATHDX MARCO SUAZO [facility] Organization Address City/State/ZIP Co de Phone Number [facility] [address] [place] [address], [facility] [place] from Last 3 Months or Most Recently Relevant to Health Maintenance Care Teams Biology Laboratory Assistant Relationship Specialty Start Date End Date Steve Choudhury M.D. [address] [address] PCP - General 01/11/17
--- OUTSIDE RECORDS SUMMARY | 2024-01-09 10:03 | XMS_ITS ---
Author Organization [facility] Address [address] [place] [address] Care Team Providers Care Sap Technical Architect Name Role Phone Unavailable Unavailable Unavailable Surgery Details Not on file Complications Check Surgery Details section. Procedure Estimated Blood Loss Check Surgery Details section. Procedure Findings Check Surgery Details section. Procedure Specimens Taken Check Surgery Details section.
--- OUTSIDE RECORDS SUMMARY | 2024-01-09 10:03 | XMS_ITS | Clinical Summary ---
Author Organization [facility] Address [place], [place] [address] Care Team Providers Care Hybrid Technologist Name Role Phone Jessica Stanton Primary Care Provider Allergies Active Allergy Reactions Criticality Noted Date Comments Cat Dander Itching Medium 03/11/2019 Medications Medication Sig Dispensed Refills Start Date End Date Status magnesium citrate 100 mg tab 300 mL. 05/15/2014 Active White Petrolatum-Mineral Oil (Refresh P.M.) 57.3-42.5 % ophthalmic ointment 1 nick, Eye(Left), Bedtime 03/23/2011 Active cholecalciferol, Vitamin D3, (Vitamin D-3) 5,000 unit tab tablet 04/29/2020 Active latanoprost (XALATAN) 0.005 % ophthalmic solution Place 1 Drop into the eye(s). 03/17/2021 Active carboxymethylcellul ose 0.5% 0.5 % drop ophthalmic drops 0 05/03/2022 Active b complex vitamins (VITAMIN B COMPLEX) capsule Take 2 Capsules by mouth once daily. 0 08/11/2022 Active LORazepam (ATIVAN) 0.5 mg tabIndications:Anxi ety Take 1 Tablet (0.5 mg) by mouth every 6 hours if needed for Anxiety or Sleep. 30 Tablet 11/23/2022 Active CPAPIndications:Obs tructive sleep apnea syndrome,Fatigue, unspecified type replacement CPAP [...] Frequency of use: Daily 1 Each 3 03/13/2023 Active DULoxetine (CYMBALTA) 60 mg Delayed-release capsuleIndications: Myofascial pain,Moderate episode of recurrent major depressive disorder (HC) TAKE 2 CAPSULES BY MOUTH ONCE DAILY 180 Capsule 1 07/20/2023 Active lisinopril-hydrochl orothiazide, 20-25 mg, (PRINZIDE, ZESTORETIC) 20-25 mg per tabletIndications:P rimary hypertension TAKE 1 TABLET BY MOUTH EVERY DAY 90 Tablet 2 11/11/2023 Active Active Problems Problem Noted Date Diagnosed Date Prediabetes 12/27/2023 FH: premature coronary heart disease 11/23/2022 Pap smear for cervical cancer screening 06/19/20 Overview: 04/2022 NIL/ HPV negative Plan: Pap/ [...] Encounters Date Type Department Care Team Description 01/09/[address] [phone] Jessica Stanton DO Refill Request (Duloxetine) 12/26/2023 11:30 AM CDT Preop Visit [address] [address] Jessica Stanton DO Pre-Op Exam ([facility] 01/09/24, Hysterectomy (total) Justina Rocha MD) 12/26/2023 Travel 12/04/2023 Orders Only [facility] Scanner 1 scan: (1-Ord) [place], HYSTEROSCOPY,DILATIO N and CURETTAGE, 12/04/2023 12/04/2023 Lab Requisition [facility] [phone] Justina Dixon MD 11/30/2023 8:00 AM CDT Preop Visit [facility] [address] [place] [address] Abdullahi Valle MD Preoperative Exam (DOS: 12/04/2023, hysteroscopy, Dr. Roth, [facility]) 11/30/2023 Travel 11/10/2023 Refill [facility] [address] [facility] [place] [address] Jessica Stanton, Refill Request (Lisinopril-hydrochl orothiazide (20-25 Mg)) 10/17/2023 Lab Requisition [facility] [phone] Justina Dixon MD from Last 3 Months Immunizations Name Administration [...] PHQ-2 Answer Date Recorded PHQ-2 TOTAL SCORE 1 12/26/2023 Social Connections Answer Date Recorded Frequency of [...] Sign Reading Time Taken Comments Blood Pressure 130/78 12/26/2023 11:48 AM CDT Pulse 65 12/26/2023 11:48 AM CDT Temperature 37 ??C (98.6 ??F) 12/26/2023 11:48 AM CDT Respiratory Rate 16 12/26/2023 11:48 AM CDT Oxygen Saturation 96% 12/26/2023 11:48 AM CDT Inhaled Oxygen Concentration - - Weight 122.2 kg (269 lb 8 oz) 12/26/2023 11:48 A M CDT Height 168.9 cm (5' 6.5) 12/26/2023 11:48 AM CD T Body Mass Index 42.85 12/26/2023 11:48 AM CDT Plan of Treatment Health Maintenance Due Date Last Done Comments HIV for age 15-65 1990 COVID-19 vaccine series (2022- season) 2023 05/15/2021, 04/15/2021 Influenza for age 9-49 03/30/2024 , 05/03/2022, 07/27/2021, Additional history exists Mammogram for age 45-75 09/03/2024 09/03/19, 08/15/2022, 03/29/2021 (Verified in Care Everywhere or Patient Record) BMI (ht and wt on same day) for age 18+ 12/25/2024 12/26/2023, 11/30/2023, 09/06/2023, Additional history exists Depression screening for age 12+ 12/25/2024 12/26/2023, 11/23/2022, 08/11/2022, Additional history exists Pap test for age 21-65 05/12/2027 , [...] Procedure Name Priority Date/Time Associated Diagnosis Comments CBC WITH AUTO DIFFERENTIAL Routine 12/26/2023 8:00 PM CDT Preoperative general physical examination Menorrhagia with regular cycle CBC WITH AUTO DIFFERENTIAL Routine 12/26/2023 8:00 PM CDT Preoperative general physical examination Menorrhagia with regular cycle COMP METABOLIC PANEL Routine 12/26/2023 8:00 PM CDT Preoperative general physical examination Menorrhagia with regular cycle HEMOGLOBIN A1C SCREENING Routine 12/26/2023 8:00 PM CDT Hyperglycemia PITCH FLAKER ANTIBODY Routine 12/26/2023 8:00 PM CDT Positive JAZMINE (antinuclear antibody) SJOGRENS ANTIBODIES Routine 12/26/2023 8 :00 PM CDT Positive JAZMINE (antinuclear antibody) ANTI-MEADOWS Routine 12/26/2023 8:00 PM CDT Positive JAZMINE (antinuclear antibody) DNA DOUBLE-STRANDED (DSDNA) ANTIBODIES BY CRIJARRETA LUCILIAE IFA Routine 12/26/2023 8:00 PM CDT Positive JAZMINE (antinuclear antibody) RA QUANTITATIVE Routine 12/26/2023 8:00 PM CDT Positive JAZMINE (antinuclear antibody) ANTISCLERODERMA 70 ANTIBODIES Routine 12/26/2023 12:47 PM CDT Positive JAZMINE (antinuclear antibody) ANTI OFELIA 1 Routine 12/26/2023 12:39 PM CDT Positive JAZMINE (antinuclear antibody) CYCLIC CITRULLINE PEPTIDE Routine 12/26/2023 12:39 PM CDT Positive JAZMINE (antinuclear antibody) LAB TRACKING EVENT Routine 12/04/2023 10 :11 AM CDT PATH TISSUE EXAM Routine 12/04/2023 10:1 1 AM CDT SCAN-ENDOSCOPY 12/04/2023 12:00 AM CDT POTASSIUM,ISTAT Routine 11/30/2023 8:31 AM CDT Essential hypertension HEMOGLOBIN Routine 11/30/2023 8:25 AM CDT Preop examination LAB TRACKING EVENT Routine 10/17/2023 8: 55 AM CDT PATH TISSUE EXAM Routine 10/17/2023 8:55 AM CDT LIPID PANEL W REFLEX MEASURED LDL Routine 09/06/2023 4:09 PM HOTEL DIRECTOR Primary hypertension XR MAMMO KAROL BILAT SCREEN Routine 09/03/2023 7:19 AM HOTEL DIRECTOR Encounter for screening mammogram for malignant neoplasm of breast COLONOSCOPY 11/20/2022 7:08 AM CDT HPV THIN PREP Routine 05/12/2022 8:15 AM CDT Pap smear for cervical cancer screening from Last 3 Months or Most Recently Relevant to Health Maintenance Results * (ABNORMAL) CBC WITH AUTO DIFFERENTIAL (12/26/2023 8:00 PM CDT) WHITE BLOOD COUNT 9.3 4.5 - 11.0 thou/cu mm 12/26/2023 8:57 PM [facility] RED BLOOD COUNT 4.44 4.00 - 5.20 mil/cu mm 12/26/2023 8:57 PM [facility] HEMOGLOBIN 13.3 12.0 - 16.0 g/dL 12/26/2023 8:57 PM [facility] HEMATOCRIT 39.4 33.0 - 51.0 % 12/26/2023 8:57 PM [facility] MCV 89 80 - 100 fL 12/26/2023 8:57 PM [facility] MCH 30.0 26.0 - 34.0 pg 12/26/2023 8:57 PM [facility] MCHC 33.8 32.0 - 36.0 g/dL 12/26/2023 8:57 PM [facility] RDW 14.1 11.5 - 15.5 % 12/26/2023 8:57 PM [facility] PLATELET COUNT 374 140 - 440 thou/cu mm 12/26/2023 8:57 PM CDT [facility] MPV 9.9 6.5 - 11.0 fL 12/26/2023 8:57 PM [facility] % NEUT 55.0 % 12/26/2023 8:57 PM [facility] % LYMPH 33.5 % 12/26/2023 8:57 PM [facility] % MONO 8.5 % 12/26/2023 8:57 PM T [facility] % EOS 2.0 % 12/26/2023 8:57 PM T [facility] % BASO 1.0 % 12/26/2023 8:57 PM [facility] ABSOLUTE NEUTROPHILS 5.1 1.7 - 7.0 thou/cu mm 12/26/2023 8:57 PM [facility] ABSOLUTE LYMPHOCYTES 3.1(H) 0.9 - 2.9 thou/cu mm 12/26/2023 8:57 PM [facility] ABSOLUTE MONOCYTES 0.8 <0.9 thou/cu mm 12/26/2023 8:57 PM [facility] ABSOLUTE EOSINOPHILS 0.2 <0.5 thou/cu mm 12/26/2023 8:57 PM [facility] ABSOLUTE BASOPHILS 0.1 <0.3 thou/cu mm 12/26/2023 8:57 PM T [facility] Blood BLOOD SPECIMEN / Unknown Butterfly / Unknown 12/26/2023 8:00 PM CDT 12/26/2023 8:05 PM CDT Jessica Stanton DO HEMATOLOGY [facility] [address] [place] [address] * HEMOGLOBIN A1C SCREENING (12/26/2023 8:00 PM CDT) HEMOGLOBIN A1C SCREENING 6.3 <=6.4 % 12/27/2023 7:17 AM T [facility] Blood BLOOD SPECIMEN / Unknown Butterfly / Unknown 12/26/2023 8:00 PM CDT 12/26/2023 8:05 PM CDT Narrative [facility] - 12/27/2023 7:17 AM CDT ? (<5.7%) ?Normal ? (5.7% to 6.4%) ? Indicates prediabetes ? (>=6.5%) ? Confirms diabetes Falsely low levels may be seen with: Recent Transfusion, Recent Significant Blood Loss, Hemolytic Diseases, or Falsely elevated levels may be seen with: Untreated Anemias, Splenectomy Jessica Stanton DO CHEMISTRY Performing Organization Address [facility] Co de Phone Number [facility] [address] [place] [address] * PITCH FLAKER ANTIBODY (12/26/2023 8:00 PM CDT) PITCH FLAKER Antibody <3.5 <=19.9 CU 12/28/2023 12:26 PM CDT [facility] Blood BLOOD SPECIMEN / Unknown Butterfly / Unknown 12/26/2023 8:00 PM CDT 12/26/2023 8:05 PM CDT Narrative [facility] - 12/28/2023 12:26 PM CDT Reference Range: ?< 20 CU Negative; ?>=20 CU Positive; ?? These results were obtained with the [employer] Quanta Flash PITCH FLAKER chemiluminescent immunoassay. Values obtained with different manufacturers' methods may not be used interchangeably. Jessica Stanton DO SEND OUTS Performing Organization Address [facility] Co de Phone Number [facility] [address] [place] [address], * ANTI-MEADOWS (12/26/2023 8:00 PM CDT) Sm Antibody 5.7 <=19.9 CU 12/28/2023 2:04 PM CDT [facility] Blood BLOOD SPECIMEN / Unknown Butterfly / Unknown 12/26/2023 8:00 PM CDT 12/26/2023 8:05 PM CDT Narrative [facility] - 12/28/2023 2:04 PM CDT Reference Range: ? < 20 CU Negative; ? >=20 CU Positive; ?? These results were obtained with the [employer] Quanta Flash Sm chemiluminescent immunoassay. Values obtained with different manufacturers' methods may not be used interchangeably. Jessica Stanton DO SEND OUTS Performing Organization Address City/[facility]/ZIP Co de Phone Number [facility] [address] [place] [address], * SJOGRENS ANTIBODIES (12/26/2023 8:00 PM CDT) Ro52 Antibody <2.3 <=19.9 CU 12/28/2023 12:26 PM CDT [facility] Ro60 Antibody <4.9 <=19.9 CU 12/28/2023 12:26 PM CDT [facility] SS-B ANTIBODY <3.3 <=19.9 CU 12/28/2023 12:26 PM CDT [facility] Blood BLOOD SPECIMEN / Unknown Butterfly / Unknown 12/26/2023 8:00 PM CDT 12/26/2023 8:05 PM CDT Narrative [facility] - 12/28/2023 12:26 PM CDT Reference Range: ? < 20 CU Negative ?? >=20 CU Positive These results were obtained with the [employer] Quanta Flash SS-B, Ro52, Ro60 chemiluminescent immunoassay. Values obtained with different manufacturers' methods may not be used interchangeably. The magnitude of the reported autoantibody levels cannot always be correlated to an endpoint titer. ? Jessica Stanton DO SEND OUTS Performing Organization Address City/[facility]/ZIP Co de Phone Number [facility] [address] [address], [place] * RA QUANTITATIVE (12/26/2023 8:00 PM CDT) Pathologist [facility] RHEUMATOID FACTOR,QUANT <10.00 <14.00 IU/mL 12/27/2023 3:40 PM CDT [facility] Blood BLOOD SPECIMEN / Unknown Butterfly / Unknown 12/26/2023 8:00 PM CDT 12/26/2023 8:05 PM CDT Jessica Stanton DO SEND OUTS Performing Organization Address [facility] Co de Phone Number [facility] [address] [place] [address], * ZEXF-HGOEIS-QXT (12/26/2023 8:00 PM CDT) [facility] ANTI-SANTA YNEZ DNA Negative Negative 12/28/2023 1:07 PM CDT [facility] Blood BLOOD SPECIMEN / Unknown Butterfly / Unknown 12/26/2023 8:00 PM CDT 12/26/2023 8:05 PM CDT Narrative [facility] - 12/28/2023 1:07 PM CDT Method: DNA Double-Stranded (dsDNA) Antibodies by Patti rasmussen IFA, IgG, Serum Jessica Stanton SEND OUTS Performing Organization Address [facility] Co de Phone Number [facility] [address] [place] [address], * (ABNORMAL) COMP METABOLIC PANEL (12/26/2023 8:00 PM CDT) Pathologist [facility] SODIUM 138 136 - 145 mmol/L 12/26/2023 9:12 PM CDT [facility] POTASSIUM 4.0 3.5 - 5.1 mmol/L 12/26/2023 9:12 PM CDT [facility] CHLORIDE 102 98 - 107 mmol/L 12/26/2023 9:12 PM CDT [facility] CO2,TOTAL 20(L) 22 - 29 mmol/L 12/26/2023 9:12 PM [facility] ANION GAP 16 5 - 18 12/26/2023 9:12 PM [facility] GLUCOSE 92 70 - 99 mg/dL 12/26/2023 9:12 PM [facility] CALCIUM 10.0 8.6 - 10.0 mg/dL 12/26/2023 9:12 PM [facility] BUN 13 6 - 20 mg/dL 12/26/2023 9:12 PM [facility] CREATININE 0.65 0.50 - 0.90 mg/dL 12/26/2023 9:12 PM [facility] BUN/CREAT RATIO 20 10 - 20 9:12 PM [facility] eGFR >90 >90 mL/min/1.7 3m2 12/26/2023 9:12 PM [facility] Comment:As of 2021, eG FR is calculated by the CKD-EPI creatinine equation without race adjustment. ??eGFR can be influenced by muscle mass, exercise, and diet. ??The reported eGFR is an estimation only and is only applicable if the renal function is stable. ALBUMIN 4.4 4.0 - 4.9 g/dL 12/26/2023 9:12 PM [facility] PROTEIN,TOTAL 7.0 6.0 - 8.0 g/dL 12/26/2023 9:12 PM [facility] BILIRUBIN,TOTAL 0.2 0.0 - 1.2 mg/dL 12/26/2023 9:12 PM [facility] ALK PHOSPHATASE 45 35 - 104 IU/L 12/26/2023 9:12 PM [facility] ALT (SGPT) 19 10 - 35 IU/L 12/26/2023 9:12 PM [facility] AST (SGOT) 18 10 - 35 IU/L 12/26/2023 9:12 PM [facility] Blood BLOOD SPECIMEN / Unknown Butterfly / Unknown 12/26/2023 8:00 PM CDT 12/26/2023 8:05 PM CDT Jessica Stanton DO CHEMISTRY [facility] [address] [place] [address] * ANTISCLERODERMA 70 ANTIBODIES (12/26/2023 12:47 PM CDT) SCL 70 Abs <0.2 0.0 - 0.9 AI 12/28/2023 9:06 PM CDT [facility] Blood BLOOD SPECIMEN / Unknown Butterfly / Unknown 12/26/2023 12:47 PM CDT 12/26/2023 12:50 PM CDT Narrative [facility]) - 12/28/2023 9:06 PM CDT Performed at: ??01 - [facility] [address] ??[id number] Benefit Director: Abram Caruso MD, Phone: ??[phone] Jessica Stanton DO SEND OUTS Performing Organization Address City/[facility]/ZIP Co de Phone Number [facility] ([facility]) [address] [place] [address] * ANTI OFELIA 1 (12/26/2023 12:39 PM CDT) Anti Ofelia 1 <0.2 0.0 - 0.9 AI 12/28/2023 9:06 PM CDT [facility]) Blood BLOOD SPECIMEN / Unknown Venipuncture / Unknown 12/26/2023 12:39 PM CDT 12/26/2023 12:39 PM CDT Narrative [facility] ([facility]) - 12/28/2023 9:06 PM CDT Performed at: ??01 - [facility] [address] [place] [address] ??[id number] Benefit Director: Abram Caruso MD, Phone: ??[phone] Jessica Stanton DO SEND OUTS Performing Organization Address [facility] Co de Phone Number [facility] ([facility]) [address] [place], [place] [id number], * CYCLIC CITRULLINE PEPTIDE (12/26/2023 12:39 PM CDT) CCP Antibody,IgG/I gA <4.6 <=19.9 CU 12/27/2023 1:12 PM CDT [facility] Blood BLOOD SPECIMEN / Unknown Venipuncture / Unknown 12/26/2023 12:39 PM CDT 12/26/2023 12:39 PM CDT Narrative [facility] - 12/27/2023 1:12 PM CDT Negative <20 Positive >=20 The following results were obtained with the [employer] Flash CCP3 chemiluminescent immunoassay. Values obtained with different manufacturers' assay methods may not be used interchangeably. Jessica Stanton DO SEND OUTS Performing Organization Address [facility] Co de Phone Number [facility] [address] [place] [address], * LAB TRACKING EVENT (12/04/2023 10:11 AM CDT) Only the most recent of2 resultswithin the time period is included. Other (Other) Client Collect / Unknown 12/04/2023 10:11 AM CDT 12/04/2023 9:50 PM CDT Justina Dixon MD LAB BILL O NLY Performing Organization Address [facility] Co de Phone Number [facility] [address] [place] [address], * PATH TISSUE EXAM (12/04/2023 10:11 AM CDT) Only the most recent of2 resultswithin the time period is included. Case Report Pathology Report ?Case: [id number] ? Authorizing Provider: ??Justina Cardoso ??Collected: ? 12/04/2023 1011 ? M, MD ? Ordering Location: ? [facility] ?Received: ?12/05/2023 0810 ? Pathologist: ? Maryjo Armenta MD ? Specimen: ?Endometrial Curettings ? 12/07/2023 9:36 AM CDT [facility] Final Diagnosis A) ENDOMETRIUM, CURETTAGE: 1. Fragments of secretory endometrium 2. Negative for chronic endometritis 3. Negative for hyperplasia, atypia, and malignancy 12/07/2023 9:36 AM CDT [facility] Clinical Information Post ablation with pain 12/07/2023 9:36 AM CDT [facility] Gross Description A) Received in formalin, labeled with the patient's name and endometrial curettings, is a 2.5 x 1 x 0.3 cm aggregate of pink-funes mucosa admixed with clotted blood and mucous. The specimen is entirely submitted in 1 cassette. RAL 12/05/2023 12/07/2023 9:36 AM CDT [facility] Microscopic Description The final diagnosis is based on microscopic examination of appropriate sections of all specimens. 12/07/2023 9:36 AM CDT [facility] Additional Information Interpreted at [facility] - [address] [place] [address] [address], [place] [address] 12/07/2023 9:36 AM CDT [facility] Other (Endometrial Curettings) 12/04/2023 10:11 AM CDT 12/05/2023 8:10 AM CDT Justina Dixon MD PATHOLOGY/ CYTOLOGY [facility] [address] [place] [address], * SCAN-ENDOSCOPY (12/04/2023 12:00 AM CDT) Scanner OTHER * POTASSIUM,ISTAT (11/30/2023 8:31 AM CDT) POTASSIUM, POCT 4.4 3.5 - 5.0 mmol/L 11/30/2023 8:34 AM CDT [facility] Blood BLOOD SPECIMEN / Unknown 11/30/2023 8:31 AM CDT 11/30/2023 8:33 AM CDT Abdullahi Valle MD CHEMISTRY [facility] [address] [place] [address], * HEMOGLOBIN (11/30/2023 8:25 AM CDT) HEMOGLOBIN 13.1 12.0 - 16.0 g/dL 11/30/2023 8:35 AM CDT [facility] MCV 90 80 - 100 fL 11/30/2023 8:35 AM CDT [facility] Blood BLOOD SPECIMEN / Unknown Venipuncture / Unknown 11/30/2023 8:25 AM CDT 11/30/2023 8:27 AM CDT Abdullahi Valle MD HEMATOLOGY [facility] [address] [place] [address], * (ABNORMAL) LIPID PANEL W REFLEX MEASURED LDL (09/06/2023 4:09 PM HOTEL DIRECTOR) CHOLESTEROL,TOTAL 202(H) 100 - 199 mg/dL 09/06/2023 5:39 PM [facility] Comment: Cholesterol, Total Reference Ranges Desirable <200 mg/dL Borderline 200-239 mg/dL High >=240 mg/dL TRIGLYCERIDES 178(H) <150 mg/dL 09/06/2023 5:39 PM [facility] HDL CHOLESTEROL 49 >40 mg/dL 5:39 PM [facility] NON-HDL CHOLESTEROL 153(H) <145 mg/dl 09/06/2023 5:39 PM [facility] CHOL/HDL RATIO 4.12 <4.50 09/06/2023 5:39 PM [facility] LDL CHOLESTEROL 117 <=130 mg/dL 09/06/2023 5:39 PM [facility] VLDL CHOLESTEROL 36(H) <=30 mg/dL 09/06/2023 5:39 PM [facility] PROVIDER ORDERED STATUS RANDOM 09/06/2023 5:39 PM [facility] Blood BLOOD SPECIMEN / Unknown Venipuncture / Unknown 09/06/2023 4:09 PM HOTEL DIRECTOR 09/06/2023 4:10 PM HOTEL DIRECTOR Jessica Stanton DO CHEMISTRY [facility] [address] [place] [address] * XR MAMMO KAROL BILAT SCREEN (09/03/2023 7:19 AM HOTEL DIRECTOR) Anatomical Region Laterality Modality BREASTS, Breast Left, Breast Right Bilateral Mammography Impressions 09/03/2023 8:41 AM HOTEL DIRECTOR ??There is no radiographic evidence for malignancy. ??Recommend annual mammograms. MAMMOGRAM ASSESSMENT: ??ACR 1 Negative PATIENTS: You will also receive a letter with your examination results in an easy to read format. ??If you have questions about your results, please contact your referring provider. Narrative 09/03/2023 8:41 AM HOTEL DIRECTOR For Patients: As a result of the Cures Act, medical imaging exams and procedure reports are released immediately into your electronic medical record. You may view this report before your referring provider. If you have questions, please contact your health care provider. XR MAMMO KAROL BILAT SCREEN [[id number]] CLINICAL HISTORY: ??This is an asymptomatic 48 [...] adequate candidate for conscious sedation. The endoscope [id number] was passed through the anus andadvanced to [...] 16 Negative Negative 05/17/2022 3:26 PM CDT [facility] TYPE 18 Negative Negative 05/17/2022 3:26 PM CDT [facility] OTHER HIGH RISK TYPES Negative Negative 05/17/2022 3:26 PM CDT [facility] Other (Cervical/Vagina l) Non-Blood / Unknown 05/12/2022 8:15 AM CDT 05/12/2022 4:44 PM CDT Narrative [facility] - 05/17/2022 3:26 PM CDT HPV types 16, 18, 31, 33, 35, 39, 45, 51, 52, 56, 58, 59, 66 and 68 DNA were undetectable or below the pre-set threshold. Methodology: Misha Nan 4800 HPV Test Jessica Stanton DO MICROBIOLOGY [facility] [address] [place] [address], from Last 3 Months or Most Recently Relevant to Health Maintenance Advance Directives * Full Code (Latest Code Status on File) Date Activated Date Inactivated Comments 11/20/2022 6:43 AM 11/20/2022 11:06 AM Question Answer Comments Code Status Discussion: Discussed * Full Code Date Activated Date Inactivated Comments 03/19/2019 9:58 AM 03/19/2019 4:15 PM Question Answer Comments Code Status Discussion: Discussed Care Teams Hybrid Technologist Relationship Specialty Start Date End Date Jessica Stanton DO [address] [place] [address] ANTHONY Cotton [address] PCP - General Internal Medicine 05/03/22
--- OUTSIDE RECORDS SUMMARY | 2024-01-09 10:03 | XMS_ITS | Referral Summary ---
Author Organization [facility] Address [address] [place] [address] Care Team Providers Care Magneto Electrician Name Role Phone Steve Choudhury M.D. Primary Care Provider [phone] Source Comments Patient records contain information from all sites at [facility]. For routine questions regarding patient records, call [phone] during business hours, M-F 8:00 AM - 5:00 PM Central Time. Record requests for emergency care only can be directed to [phone] at any time.[facility] Encounters Date Type Department Care Team Description [...] week 03/29/2021 How often do you attend [facility] or shinto services? More than 4 times per year 03/29/2021 Do you belong to any clubs o r organizations such as advent groups, unions, fraternal or athletic groups, or [...] Answer Date Recorded PHQ-2 Score 3 01/25/2022 [facility] Occupat ional [facility] - Occupational Stress Questionnaire Answer Date [...] place to sleep or slept in a chcf (including now)? No 03/29/2021 Depression Answer Date Recor ded PHQ-9 Total Score (max 27) 10 06/29 /2022 Nutrition Answer Date Recorded Nutrition: EVOO Fat [...] CDT Gender Identity Female 06/29/2017 9:52 PM FIELD ADMINISTRATIVE ASSISTANT Sexual Orientation Straight 06/29/2017 9: 52 PM FIELD ADMINISTRATIVE ASSISTANT Last Filed Vital Signs Vital Sign Reading Time Taken Comments Blood Pressure 145/88 03/29/2021 11:48 AM CDT Pulse 71 03/29/2021 11:48 AM CDT Temperature 36.8 ??C (98.2 ??F) 03/29/2021 11:47 AM C DT Respiratory Rate 18 06/07/2020 1:43 PM FIELD ADMINISTRATIVE ASSISTANT Oxygen Saturation 93% 09/12/2019 3:22 PM FIELD ADMINISTRATIVE ASSISTANT Inhaled Oxygen Concentration - - Weight 109 [...] BILATERAL WITH TOMOSYNTHESIS Routine 08/15/2022 7:13 AM FIELD ADMINISTRATIVE ASSISTANT HCV AB SCRN W/REFLEX TO HCV PCR, S Routine 03/31/2021 7:13 AM CDT Connective Tissue Disease (HCC) THINPREP SCREEN HPV REFLEX Routine 08/30/2018 4:03 PM FIELD ADMINISTRATIVE ASSISTANT General Medical Examination Adult from Last 3 Months or Most Recently Relevant to Health Maintenance Results * HCV Ab Scrn w/Reflex to HCV PCR, Serum (03/31/2021 7:13 AM CDT) HCV Ab Screen, S Negative Negative 04/01/2021 8:42 AM CDT [facility] Comment:Jogpjj-na-oknxwj rat io is <1.00. Blood (Blood, Venous) 03/31/2021 7:13 AM CDT 04/01/2021 8:42 AM CDT Steve Choudhury M.D. LAB MICROBIOLOGY - BLOOD ORDERABLES [facility] [address] [place] [address] [facility] Dept. of Laboratory Medicine and Pathology [address] [place] [address] * ThinPrep Screen HPV Reflex (08/30/2018 4:03 PM FIELD ADMINISTRATIVE ASSISTANT) 09/03/2018 3:18 PM FIELD ADMINISTRATIVE ASSISTANT [facility] Report electronically signed by DAWSON Simms(ASCP) I verify that I have examined all relevant slides/materials for the specimen(s) and rendered or confirmed the diagnosis. 09/03/2018 3:18 PM FIELD ADMINISTRATIVE ASSISTANT [facility] Gross Description Received specimen in a ThinPrep vial. 09/03/2018 3:18 PM FIELD ADMINISTRATIVE ASSISTANT [facility] Pap Test Source Cervical/Endocervi viktoria 09/03/2018 3:18 PM FIELD ADMINISTRATIVE ASSISTANT [facility] Clinical History unk 09/03/19 19 3:18 PM FIELD ADMINISTRATIVE ASSISTANT [facility] Menstrual Status(LMP, PM, ) unk 09/03/2018 3:18 PM FIELD ADMINISTRATIVE ASSISTANT [facility] Hormone Therapy/Contracep tives unk 09/03/2018 3:18 PM FIELD ADMINISTRATIVE ASSISTANT [facility] Interpretation Cervical/Endocervi viktoria ??(ThinPrep): Satisfactory for Evaluation Negative for Intraepithelial Lesion or Malignancy 09/03/2018 3:18 PM FIELD ADMINISTRATIVE ASSISTANT [facility] Varies (Cervix/Endocerv ix) 08/30/2018 4:03 PM FIELD ADMINISTRATIVE ASSISTANT 09/02/2018 2:26 PM FIELD ADMINISTRATIVE ASSISTANT Steve Choudhury M.D. LAB PAP PATHDX MARCO SUAZO [facility] [address] [place] [address], [facility] from Last 3 Months or Most Recently Relevant to Health Maintenance Care Teams Magneto Electrician Relationship Specialty Start Date End Date Steve Choudhury M.D. [address] [place] [phone] PCP - General 01/11/17
--- OUTSIDE RECORDS SUMMARY | 2024-01-09 10:03 | XMS_ITS | Encounter Summary ---
Author Organization [facility] Address [address] [place] [address] Care Team Providers Care Rod Mill Tender Name Role Phone Steve Choudhury M.D. Primary Care Provider [phone] Reason for Referral * Outpatient (Routine) - Authorized Specialty Diagnoses / Procedures Referred By Octavia t Referred To Contact Family Medicine Steve Choudhury M.D. [address], [place] [address] [facility] Referral ID Status Reason Start Date Expiration Date V isits Requested Visits Authorized [id number] Authorized 10/30/2023 04/30/2025 1 1 Encounter Details Date Type Department Care Team (Late st Contact Info) Description 10/30/2023 Orders Only [facility] Ch[facility] M.[facility] [address] [place] [address] Monitoring For Therapeutic Drug Therapy [...] How often do you attend chur or yazidi services? More than 4 times per year 03/29/2021 Do you belong to any clubs o r organizations such as mosque groups, unions, fraternal or athletic groups, or [...] Answer Date Recorded PHQ-2 Score 3 01/25/2022 [facility] Occupat ional Health - Occupational Stress [...] place to sleep or slept in a senior living (including now)? 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 [address] [place] [address] PCP - General 01/11/17 documented as of this encounter
[2024-01-09] MEDS: PHENAZOPYRIDINE HCL 200 MG TABLET PO (10:22)
[2024-01-09] MEDS: SODIUM CHLORIDE 0.9 % (FLUSH) 10 ML SYRINGE IVF (10:23)
--- NOTE | 2024-01-09 10:32 | W.PM.H&PU ---
History & Physical Update History & Physical Update H&P Reviewed and patient assessed: No changes noted
[2024-01-09] MEDS: CEFAZOLIN 1 GM inj 3 GM IVP (11:27)
[2024-01-09] MEDS: BUPIVACAINE 0.25% 30 ML INJECTION ×2 (11:45→14:00)
[2024-01-09 11:50] LABS: Creatinine* 0.5 mg/dL (0.5-1.5); Est. Creatinine Clearance* 127.41; Estimated Glomerular Filt Rate 115 ml/min
--- NOTE | 2024-01-09 13:37 | W.ANESCHARGE ---
Anesthesia Charges Start Date/Time Anesthesia Start Date: 01/09/24 Anesthesia Start Time: 10:59 Stop Date/Time Anesthesia Stop Date: 01/09/24 Anesthesia Stop Time: 14:46
[2024-01-09] MEDS: LACTATED RINGERS 1000 ML 1,000 ML 100 ML IV (13:45)
--- NOTE | 2024-01-09 14:14 | SUR.OPER ---
family contact (MICHAEL) was updated @ 7179 by nurse.
[2024-01-09] MEDS: KETOROLAC 30 MG/ML inj IVP ×2 (14:19→20:20)
[2024-01-09] MEDS: BACITRACIN OINTMENT BULK TUBE 1 APPLIC TOPICAL (14:23)
--- NOTE | 2024-01-09 14:30 | P.NB_ITS ---
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 Images saved: Yes Medications given in 5ml increments after negative aspiration: Marcaine %: 0.25 mL: 30 Needle gauge: 20 and Exparel mL: 10 Patient tolerated procedure well: Yes Additional comments: Needle noted between internal oblique and transversus abdominus. Local spread visualized Block Charges Block Charge (with Pro Fee): TAP Bilateral Use of Ultrasound Machine for Block: Yes- US Guidance/pain block
--- NOTE | 2024-01-09 14:32 | W.ANESCHARGE ---
Anesthesia Charges Start Date/Time Anesthesia Start Date: 01/09/24 Anesthesia Start Time: 10:59 Stop Date/Time Anesthesia Stop Date: 01/09/24 Anesthesia Stop Time: 14:46
--- NOTE | 2024-01-09 14:42 | W.PM.GYNPROC ---
Procedure Note Date of procedure: 01/09/24 Will [facility] bill your pro fee for this procedure?: Yes Pre-op diagnosis: Abnormal uterine bleeding, chronic pelvic pain Post-op diagnosis: Abnormal uterine bleeding, chronic pelvic pain Procedure: Total Laparoscopic Hysterectomy, Bilateral Salpingectomy, Right Ovarian cystectomy, Lysis of adhesions, Cystoscopy Anesthesia: GETA Complications: None Surgeon: Aniceto Dixon Automotive Service Assistant: Nena Penaloza Estimated blood loss (mL): 300 IV fluids (mL): 1,800 Urine Output (mL): 200 Pathology: specimen obtained, sent to pathology Condition: stable Disposition: floor Findings: Speculum exam: Cervix grossly normal w/o lesions or abnormal discharge. Uterine sound to 7-8cm. No significant dilation needed and a Medium V- Care uterine manipulator placed easily. Intra abdominal survey: Grossly normal large and small intestine, liver with small superficial dark lesion as in endometriosis? otherwise grossly normal, gallbladder, stomach and diaphragm. Pelvis: Uterus of about 8-9cm, posterior fundal uterine subserosal fibroid, of about 2-3cm. Bladder adhesions to the anterior uterine wall. Evidence of endometriosis in the pelvic peritoneum: clear small vesicular lesions as well as a dark powder gun lesion in close proximity to the left infundibulopelvic ligament, similar lesions on the posterior cul de sac, bilateral uterosacral ligaments, over bilateral fallopian tubes and ovaries. Left ovary with a small cystic structure of about 2-3cm, looks like a hemorrhagic cyst. Left ovary with fine adhesions to the the left fallopian tube and pelvic side wall. Right ovary with 2 small para ovarian cysts each of about 1-2cm, looked to be full of a clear fluid. Findings would be consistent with stage 3 endometriosis. Anterior abdominal wall fascial defect with associated omental adhesion. Procedure Description: DESCRIPTION OF PROCEDURE: After obtaining informed consent, the patient was taken to the operating room where general anesthesia was obtained without difficulty. She was prepared and draped in the normal sterile fashion in the low dorsal lithotomy position. A Ruiz catheter was inserted into the bladder and left to gravity drainage. A medium Graves open-sided speculum was introduced into the vagina. The cervix was visualized and grasped along its anterior lip with a single-tooth tenaculum. The uterus was gently sounded. Sound length was found to be 8 cm. No need for cervical dilation. I then placed a large VCare uterine manipulator. The tenaculum and speculum were removed. The green VCare cup was digitally pressed up against the cervix and then cinched in place with the blue accessory cup. I then changed gloves and my attention was turned to the abdomen. The inferior aspect of the umbilical fold was injected with 0.25% Marcaine plain. A 5 mm vertical incision was then made within the umbilical fold using a scalpel. A direct entry technique was used, first and second attempts with preperitoneal insufflation, fascia was then grasped with Alicia but slipped because it was too deep. A longer 5mm laparoscopic port with CO2 gas set at 5mmHg was introduced under direct visualization and this was successful. The trocar was removed leaving the sleeve in place. The CO2 gas flow was turned to high flow to achieve pneumoperitoneum. The 5 mm laparoscope was used then to carefully inspect the abdomen and pelvis with findings noted above. Pictures were taken for documentation purposes. The patient was placed in Trendelenburg positioning. Two additional ports were placed in the right and left lower quadrants under direct visualization after first anesthetizing the skin and fascia with 0.25% Marcaine plain. On the left side a 11mm port was utilized and on the right side a 5mm port placed. An additional 5mm port was placed on the abdomen at the level of the umbilicus to the left of umbilicus, about 3-4 cm lateral from umbilicus under direct visualization. Once the ports were in place, the VCare manipulator was used to elevate the uterus. The ureters were identified bilaterally along their courses in the pelvic sidewalls. The VCare cup was visualized and palpated with a blunt grasper. The omental adhesion was removed with LigaSure device. The left tube was elevated with a graspers. The LigaSure device was used to dissect the tube from it's ovarian and broad ligament and cornual attachments before removing the tube through a lower port. Excellent hemostasis was obtained. The remaining broad ligament attachments were sealed and transected with the LigaSure device. The left round ligament was then sealed in a wide swath and transected with the LigaSure, excellent hemostasis was obtained. The broad ligament was then opened using the LigaSure anteriorly and posteriorly along the cervix from the left within the confines of the VCare cup. Pressure was maintained on the uterine manipulator the whole time. The left uterine vessels were sealed in a wide swath and transected with the LigaSure, then the tissues over the VCare cup edge on the left side were thinned using LigaSure device and laparoscopic scissors. Due to thick adhesion over the anterior aspect of the cup, difficulty encountered in terms of delineating the confines of the bladder. Decision was made to backfill the bladder with sterile formula. 150mL of sterile formula were instilled in the bladder, no evidence of intra abdominal spillage of formula noted. Keeping the bladder inflated I was able to delineate confines of bladder tissue and completely separate bladder from lower uterine segment mostly in the midline were the adhesion was worse. The bladder was then drained and Ruiz catheter was replaced. The right tube was elevated with a graspers. The LigaSure device was used to dissect the tube from it's ovarian and broad ligament and cornual attachments before removing the tube through a lower port. Excellent hemostasis was obtained. The remaining broad ligament attachments were sealed and transected with the LigaSure device. The right round ligament was then sealed in a wide swath and transected with the LigaSure, excellent hemostasis was obtained. The broad ligament was then opened using the LigaSure anteriorly and posteriorly along the cervix from the right within the confines of the VCare cup. Pressure was maintained on the uterine manipulator the whole time. The right uterine vessels were sealed in a wide swath and transected with the LigaSure, then the tissues over the VCare cup edge on the right side were thinned using the LigaSure to the midline posteriorly and anteriorly so that the fascial layer could be identified. Once an adequate dissection was made circumferentially, monopolar spatula was utilized to dissect until identification of the green Vcare cup, tissue dissected circumferentially around the cervix within the groove of the VCare cup. Once the dissection was completed circumferentially, from the vagina the uterine manipulator and the uterus were removed. The uterus was left in the vagina to aid in maintaining pneumoperitoneum. The vaginal cuff was reapproximated in a running fashion with a V-Loc suture starting from the right side and running across to the left and then back to the midline where the suture was cut flush with the tissues. The pelvis was copiously irrigated and hemostasis visualized. Preparations were then made for cystoscopy. Oral phenazopyridine had been given in the pre op area. Uterus was removed from the vagina. A small midline vaginal laceration at the level of the hymen was noted and repaired with Vicryl 3-0 in a figure of 8. Hemostasis secured. The Ruiz catheter was removed. The patient was flattened out. Cystoscopy was performed using sterile normal saline as distending medium. The bladder was carefully inspected and noted to be free of filling defects or suture material. Both ureteral orifices were easily visualized and orange tinged urine jets were noted from both sides. The cystoscope was then removed. The Ruiz catheter was replaced into the bladder. Attention was once again turned to the abdomen. The abdomen and pelvis were again irrigated and inspected for hemostasis. Darin was placed over resection sites for further hemostasis. Attention was then placed to the 11mm port site and under direct visualization using a Ricky-Danae system the fascia was closed. All instruments were then removed under direct visualization. Pneumoperitoneum was allowed to escape. The skin at all port sites was closed in a subcuticular fashion with 4-0 Vicryl. LiquiBand was then placed over the incisions. The patient tolerated the procedure well. Sponge, lap, needle, and instrument counts were reported as correct x2. The patient was taken to the recovery room awake and in stable condition. She did receive 3 g of IV Ancef preoperatively. PATHOLOGY SPECIMEN(S): Uterus,bilateral fallopian tubes and right ovarian cyst.
--- NOTE | 2024-01-09 15:12 | SUR.PHASEI ---
Patient meets anesthesia discharge criteria from PACU
--- NOTE | 2024-01-09 16:09 | RESP.RT ---
Home CPAP checked and found to be clean and in good working order. Patient on NC 2 Lpm SaO2 94-96% post surgery. Placed on Home CPAP on room air SaO2 decreased to 89-90%, 1 Lpm Oxygen bleed in placed in line with Nasal pillows interface, SaO2 94-95%. As patient wakes up from Anesthesia Oxygen may be wean as patient tolerates.
[2024-01-09] MEDS: OXYCODONE 5 MG TABLET PO (18:41)
[2024-01-09] MEDS: LACTATED RINGERS 1000 ML 1,000 ML 125 ML IV (18:50)
--- NOTE | 2024-01-09 19:31 | PC.NURSE ---
End of Shift: Patient pleasant and cooperative, A&O. VSS, afebrile. Patient came up on 1.5L O2, SpO2 was above 95%, so I put her at 1L O2, SpO2 has been above 92% since then. Patient reporting pain on her abdomen, PRN medication given, see MAR. Ice applied to abdomen.
[2024-01-09] MEDS: ACETAMINOPHEN 325 MG TABLET 1000 MG PO (20:25)
[2024-01-10] MEDS: KETOROLAC 30 MG/ML inj IVP (02:01)
[2024-01-10] MEDS: ACETAMINOPHEN 325 MG TABLET 1000 MG PO (02:06)
[2024-01-10 02:44] VITALS: BP 149/81; PULSE 95; RESP 16; TEMP 36.9; O2SAT 95
[2024-01-10] MEDS: IBUPROFEN 600 MG TABLET PO (06:09)
[2024-01-10 06:33] LABS: Hemoglobin* 11.4 gm/dL (12.0-16.0)
--- NOTE | 2024-01-10 06:46 | PC.NURSE ---
End of shift [id number]: Upon initial assessment pt quite sleepy and rating pain in abdomen /10. See eMAR for interventions. Later in the shift pt was able to dangle and stand at the side of the bed. Denied any lightheaded/dizziness. Some hypertension otherwise VSS. When awake maintaining sats on RA. CPAP w/ 1L of oxygen bled through overnight. Ruiz in place and draining. Saline locked. Lap sites c/d/i. Using call light appropriately.
[2024-01-10 06:58] LABS: Creatinine* 0.5 mg/dL (0.5-1.5); Est. Creatinine Clearance* 127.41; Estimated Glomerular Filt Rate 115 ml/min
[2024-01-10 08:30] VITALS: BP 132/70; PULSE 77; RESP 16; TEMP 36.7; O2SAT 95
[2024-01-10] MEDS: lisinopriL 20 MG TABLET PO (10:28)
[2024-01-10] MEDS: hydroCHLOROthiazide 25 MG TABLET PO (10:29)
[2024-01-10] MEDS: OXYCODONE 5 MG TABLET PO ×2 (10:31→15:27)
[2024-01-10] MEDS: ACETAMINOPHEN 500 MG TABLET 1000 MG PO (11:23)
--- NOTE | 2024-01-10 12:02 | P.DS_ITS ---
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 Indication for surgery: Uterine bleeding, chronic pelvic pain. Intraoperative findings were notable for myomatous uterus, endometriosis, ovarian cyst, pelvic adhesions. She had an uncomplicated surgery. Postoperative course has been uneventful. Vitals have been stable. She has remained afebrile. Today, on postoperative day 1, she reports the pain is well controlled. She has been able to ambulate Without difficulty. She is tolerating regular diet. She is passing flatus. Ruiz catheter has been removed, and she is voiding without difficulty. 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 GENERAL APPEARANCE: Alert, cooperative female in no acute distress. MOOD & AFFECT: Normal. ABDOMEN: Positive bowel sounds. Soft, appropriately distended and mildly tender. Incisions healing well, no surrounding erythema, abnormal induration or abnormal discharge. Skin fold over months pubis with evidence of tinea corporis. : Minimal spotting. EXTREMITIES: Nonedematous. Well perfused. Nontender. 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 E[place], [facility], January 23 @ 9:30 am Prescriptions: New acetaminophen 500 mg Tablet 1,000 mg PO Q6H PRN (Reason: minor pain) Qty: 30 0RF docusate sodium 100 mg Capsule 100 mg PO BID PRN (Reason: Constipation) Qty: 30 0RF ibuprofen 600 mg Tablet 600 mg PO Q6H Qty: 30 0RF oxycodone 5 mg Tablet 5 mg PO Q4H PRN (Reason: Moderate Pain) Qty: 15 0RF Continued duloxetine 60 mg capsule,delayed release(DR/EC) 120 mg PO DAILY lisinopril-hydrochlorothiazide 20-25 mg tablet 1 tab PO DAILY latanoprost 0.005 % drops 1 drp ophthalmic (eye) HS cholecalciferol (vitamin D3) 25 mcg (1,000 unit) capsule 25 mcg PO DAILY vitamin B complex Tablet 1 tab PO DAILY magnesium citrate 100 mg capsule 100 mg PO DAILY Activity Level: No Weight Bearing Activity Detail: No lifting more than 15-20 pounds, nothing vaginally for 6 weeks. Discharge Diet: Regular Patient Instructions: Acetaminophen (By mouth), Ibuprofen (By mouth), Laxative, Stool Softeners (By mouth), Oxycodone, Rapid Release (By mouth), Laparoscopic Hysterectomy (DC) Follow-up: Justina Dixon MD [Staff Physician] - 01/24/24 9:30 am ([facility] for follow-up.) Jessica Stanton [Primary Care Provider] - Discharge Orders: Discharge Order (Routine); Ordered 01/10/24 Ordered By: Justina Dixon
== END 2024-01-10 15:30 | disposition home or self-care (01) ==
LOC: OR 10:00 → MEDSURG 10:05
PROVIDERS: PCP Internal Medicine; Visit Provider Obstetrics & Gynecology
PROC: 0UT94ZZ Resection of Uterus, Percutaneous Endoscopic Approach (ICD-10-PCS; CPT 58571; principal; 2024-01-09 11:30)
DX: N93.8 Other specified abnormal uterine and vaginal bleeding (principal); R10.2 Pelvic and perineal pain; N83.201 Unspecified ovarian cyst, right side; D25.2 Subserosal leiomyoma of uterus; G89.18 Other acute postprocedural pain; G89.29 Other chronic pain; N80.3C3 Endometriosis of bilateral uterosacral ligament(s), unspecified depth; N80.329 Endometriosis of the posterior cul-de-sac, unspecified depth; N73.6 Female pelvic peritoneal adhesions (postinfective); N80.203 Endometriosis of bilateral fallopian tubes, unspecified depth; N80.103 Endometriosis of bilateral ovaries, unspecified depth
CPT/HCPCS: 58571; 58662; 00840; 36415; 64488; 76942; 82565; 85018; 86850; 86900; 86901; 88305; 88309; 88341; 88342; A9270; C9290; J0330; J0665; J0690; J1100; J1170; J1630; J1885; J2250; J2371; J2405; J2704; J3010; J3490; J7120